=== PATIENT | female | born 1995 | race Caucasian/White ===

== ENCOUNTER 2020-04-21 12:46 | Emergency (ER) | payer OTHER, SELFPAY ==
--- NOTE | 2020-04-21 13:26 | ER ---
Nurse's Notes [facility] Name: Pura Jo Age: 25 yrs Sex: Female : 1995 Arrival Date: 04/21/2020 Time: 12:47 Bed 15 Private MD: Diagnosis: Otitis media, unspecified, left ear;Urinary tract infection, site not specified Presentation: 04/21 12:57 Chief complaint: Patient states: Left ear pain with numbness to that side of face for 3 ll1 days. Painful urination for 2 days. + urinary frequency with oliguria Low grade fever last night. + nausea. Coronavirus screen: Client denies travel out of the [place] in the last 14 days. At this time, the client does not indicate any symptoms associated with coronavirus-19. Ebola Screen: Patient denies travel to an Ebola-affected area in the 21 days before illness onset. Initial Sepsis Screen: Does the patient meet any 2 criteria? No. Patient's initial sepsis screen is negative. Risk Assessment: Do you want to hurt yourself or someone else? Patient reports no desire to harm self or others. Onset of symptoms was April 19, 2020. 12:57 Method Of Arrival: Ambulatory ll1 12:57 Acuity: UMESH 4 ll1 Triage Assessment: 13:00 General: Appears in no apparent distress. uncomfortable, Behavior is cooperative, bp appropriate for age, anxious. Pain: Complains of pain in left ear. EENT: Reports pain in left ear. Neuro: No deficits noted. Cardiovascular: No deficits noted. Respiratory: No deficits noted. GI: No signs and/or symptoms were reported involving the gastrointestinal system. : No signs and/or symptoms were reported regarding the genitourinary system. Derm: No deficits noted. Musculoskeletal: No deficits noted. Historical: - Allergies: 12:59 Midol; ll1 - PMHx: 12:59 scoliosis; ll1 - PSHx: 12:59 ; ll1 - Immunization history:: Flu vaccine is not up to date. - Social history:: Smoking status: Patient reports the use of cigarette tobacco products, smokes one-half pack cigarettes per day. Screenin:54 Abuse screen: Denies threats or abuse. Denies injuries from another. Nutritional ph screening: No deficits noted. Tuberculosis screening: No symptoms or risk factors identified. Fall Risk None identified. Assessment: 13:52 General: Appears in no apparent distress. comfortable, slender, well groomed, Behavior ph is calm, cooperative, appropriate for age, Denies fever, feeling ill. Pain: Complains of pain in left quaker. Neuro: Level of Consciousness is awake, alert, obeys commands, Oriented to person, place, time, situation, Reports headache. Cardiovascular: Capillary refill < 3 seconds in bilateral fingers Patient's skin is warm and dry. Respiratory: No deficits noted. : Reports burning with urination. EENT: Reports pain in left ear. Derm: Skin is intact, is healthy with good turgor, Skin is pink, warm \T\ dry. Musculoskeletal: Circulation, motion, and sensation intact. Range of motion: intact in all extremities. 13:54 Reassessment: D/C pending 15 min shot time. ph 14:10 Reassessment: PT D/C HOME AMBULATORY, DX WITH OTITIS MEDIA AND UTI. bp Vital Signs: 12:57 BP 107 / 79; Pulse 85; Resp 17; Temp 98.2; Pulse Ox 100% ; Weight 47.63 kg; Height 5 ll1 ft. 1 in. (154.94 cm); Pain 6/10; 14:10 BP 111 / 75; Pulse 79; Resp 17; Temp 98.5; Pulse Ox 99% ; bp 12:57 Body Mass Index 19.84 (47.63 kg, 154.94 cm) ll1 ED Course: 12:47 Patient arrived in ED. ds1 12:59 Triage completed. ll1 12:59 Arm band placed on Patient placed in an exam room, on a stretcher. ll1 13:01 Suman Laureano, DEWAYNE is Primary Nurse. bp 13:11 Jerry Booth NP is PHCP. pm1 13:11 Tay Villalta MD is Attending Physician. pm1 13:53 Patient has correct armband on for positive identification. Bed in low position. Call ph light in reach. Side rails up X 1. Pulse ox on. NIBP on. 14:10 No provider procedures requiring assistance completed. Patient did not have IV access bp during this emergency room visit. Administered Medications: 13:51 Drug: Rocephin (cefTRIAXone) 1 grams Route: IM; Site: right deltoid; ph 14:12 Follow up: Response: No adverse reaction bp 13:51 Drug: TORadol 60 mg Route: IM; Site: left deltoid; ph 14:12 Follow up: Response: No adverse reaction bp Outcome: 13:26 Discharge ordered by . pm1 14:11 Discharged to home ambulatory. bp 14:11 Condition: stable 14:11 Discharge instructions given to patient, Instructed on discharge instructions, follow up and referral plans. medication usage, Demonstrated understanding of instructions, follow-up care, medications, Prescriptions given X 1. 14:12 Patient left the ED. bp Addendum: 04/24/2020 09:20 Addendum: Culture Results: Positive urine culture. Phone call Attempt #1 Left voicemail a a5 at [facility] for pt to call back. Signatures: Lila Sharp ds1 Kayley Bueno, RN RN aa5 Kate Molina RN RN ph Jerry Booth, ALTON WOUND CARE SPECIALIST pm1 Suman Laureano RN RN bp Katerina Uriarte RN RN ll1
--- NOTE | 2020-04-21 13:27 | EDPHYS ---
Physician Documentation [facility] Name: Pura Jo Age: 25 yrs Sex: Female : 1995 Arrival Date: 04/21/2020 Time: 12:47 Bed 15 Private MD: ED Physician Tay Villalta HPI: 04/21 13:25 This 25 yrs old Female presents to ER via Ambulatory with complaints of Ear pm1 Pain, Pain With Urination. 13:25 The patient presents with pain. The complaints affect the left ear. pm1 13:25 Onset: The symptoms/episode began/occurred 3 day(s) ago. Modifying factors: The pm1 symptoms are alleviated by nothing, the symptoms are aggravated by nothing. Associated signs and symptoms: The patient has no apparent associated signs or symptoms, Pertinent positives: nausea, Pertinent negatives: cough, fever, abdominal pain, vomiting. The patient has experienced similar episodes in the past, a few times. Patient burning with urination for the past 2 days. Patient is currently at a rehabilitation facility. Historical: - Allergies: 12:59 Midol; ll1 - PMHx: 12:59 scoliosis; ll1 - PSHx: 12:59 ; ll1 - Immunization history:: Flu vaccine is not up to date. - Social history:: Smoking status: Patient reports the use of cigarette tobacco products, smokes one-half pack cigarettes per day. ROS: 13:25 Constitutional: Negative for fever, chills, and weight loss, Cardiovascular: Negative pm1 for chest pain, palpitations, and edema, Respiratory: Negative for shortness of breath, cough, wheezing, and pleuritic chest pain. 13:25 Back: Negative for injury and pain, MS/Extremity: Negative for injury and deformity. 13:25 Skin: Negative for injury, rash, and discoloration, Neuro: Negative for headache, weakness, numbness, tingling, and seizure. 13:25 ENT: Positive for ear pain, Negative for drainage from ear(s). 13:25 Abdomen/GI: Positive for nausea, Negative for abdominal pain, vomiting, diarrhea, constipation. 13:25 : Positive for urinary frequency, small amounts, burning with urination, Negative for pelvic pain. Exam: 15:20 Constitutional: This is a well developed, well nourished patient who is awake, alert, pm1 and in no acute distress. Head/Face: Normocephalic, atraumatic. 15:20 Skin: Warm, dry with normal turgor. Normal color with no rashes, no lesions, and no evidence of cellulitis. MS/ Extremity: Pulses equal, no cyanosis. Neurovascular intact. Full, normal range of motion. 15:20 ENT: External ear(s): are unremarkable, Ear canal(s): are normal, TM's: bulging, on the left, erythema, that is mild, on the left, Examination of the other ear shows no obvious abnormality. 15:20 Cardiovascular: Exam negative for acute changes, Rate: normal, Rhythm: regular, Pulses: 15:20 Respiratory: Exam negative for acute changes, the patient does not display signs of respiratory distress, Respirations: normal. 15:20 Abdomen/GI: Exam negative for acute changes, Inspection: abdomen appears normal, Palpation: abdomen is soft and non-tender, in all quadrants. 15:20 Back: pain, is absent. 15:20 Neuro: Exam negative for acute changes, Orientation: is normal, Mentation: is normal, Motor: is normal, moves all fours, Sensation: is normal, no obvious gross deficits. Vital Signs: 12:57 BP 107 / 79; Pulse 85; Resp 17; Temp 98.2; Pulse Ox 100% ; Weight 47.63 kg; Height 5 ll1 ft. 1 in. (154.94 cm); Pain 6/10; 14:10 BP 111 / 75; Pulse 79; Resp 17; Temp 98.5; Pulse Ox 99% ; bp 12:57 Body Mass Index 19.84 (47.63 kg, 154.94 cm) ll1 MDM: 13:25 Patient medically screened. pm1 13:25 Data reviewed: vital signs. Data interpreted: Pulse oximetry: on room air is 100 %. pm1 Interpretation: normal. Counseling: I had a detailed discussion with the patient and/or guardian regarding: the historical points, exam findings, and any diagnostic results supporting the discharge/admit diagnosis, the need for outpatient follow up, to return to the emergency department if symptoms worsen or persist or if there are any questions or concerns that arise at home. 04/21 13:24 Order name: Urine Microscopic Only; Complete Time: 15:16 pm1 04/21 13:40 Order name: Urine Dipstick--Ancillary (enter results); Complete Time: 15:16 04/21 13:40 Order name: Urine --Ancillary (enter results); Complete Time: 15:16 04/21 13:55 Order name: Urine Culture [facility] 04/21 13:24 Order name: Urine Dipstick-Ancillary (obtain specimen); Complete Time: 13:52 pm1 04/21 13:24 Order name: Urine Test (obtain specimen); Complete Time: 13:52 pm1 Administered Medications: 13:51 Drug: Rocephin (cefTRIAXone) 1 grams Route: IM; Site: right deltoid; ph 14:12 Follow up: Response: No adverse reaction bp 13:51 Drug: TORadol 60 mg Route: IM; Site: left deltoid; ph 14:12 Follow up: Response: No adverse reaction bp Disposition: 04/22 08:44 Co-signature as Attending Physician, Tay Villalta MD I agree with the assessment and kdr plan of care. Disposition: 04/21/20 13:26 Discharged to Home. Impression: Otitis media, unspecified, left ear, Urinary tract infection, site not specified. - Condition is Stable. - Discharge Instructions: Otitis Media, Adult, Urinary Tract Infection, Adult. - Prescriptions for cefdinir 300 mg Oral capsule - take 1 capsule by ORAL route every 12 hours for 7 days; 14 capsule. - Medication Reconciliation Form, Thank You Letter, Antibiotic Education, Prescription Opioid Use form. - Follow up: Emergency Department; When: As needed; Reason: Worsening of condition. Follow up: Private Physician; When: 2 - 3 days; Reason: Recheck today's complaints, Continuance of care, Re-evaluation by your physician. - Problem is new. - Symptoms have improved. Signatures: Dispatcher [employer] [facility] Tay Villalta MD MD [facility] Kate Molina RN RN ph Jerry Booth, ALTON PINION POLISHER pm1 Suman Laureano RN RN bp Lewis, Lynsay, RN RN ll1 Corrections: (The following items were deleted from the chart) 04/21 14:12 13:26 04/21/2020 13:26 Discharged to Home. Impression: Otitis media, unspecified, left bp ear; Urinary tract infection, site not specified. Condition is Stable. Forms are Medication Reconciliation Form, Thank You Letter, Antibiotic Education, Prescription Opioid Use. Follow up: Emergency Department; When: As needed; Reason: Worsening of condition. Follow up: Private Physician; When: 2 - 3 days; Reason: Recheck today's complaints, Continuance of care, Re-evaluation by your physician. Problem is new. Symptoms have improved. pm1
[2020-04-21] MEDS ORDERED: KETOROLAC 30 MG/ML INJ ONE (13:44)
[2020-04-21] MEDS ORDERED: CEFTRIAXONE 1000 MG/VIAL ONE (13:44)
[2020-04-21] MEDS ORDERED: LIDOCAINE 1% MPF 2 ML AMPULE ONE (13:45)
[2020-04-21 13:54] LABS: Urine Bacteria >50 /HPF (<20); Urine Culture Reflex Order REFLEXED
[2020-04-21 13:54] LABS: Urine Blood TRACE (NEG); Urine Glucose NEGATIVE (NEG); Urine Protein NEGATIVE (NEG); Urine Specific Gravity 1.025 (1.005-1.030); Urine pH 7.5 (5.0-7.0)
[2020-04-21 14:20] VITALS: BP 111/75; TEMP 98.5; O2SAT 99
== END 2020-04-21 14:12 | disposition home or self-care (01) ==
LOC: ER 12:46
DX: H66.92 Otitis media, unspecified, left ear (principal); N39.0 Urinary tract infection, site not specified; F17.210 Nicotine dependence, cigarettes, uncomplicated; Z88.6 Allergy status to analgesic agent
CPT/HCPCS: 81003; 81015; 81025; 87077; 87086; 87088; 87186; 96372; 99283; J2001

== ENCOUNTER 2020-07-16 20:56 | Emergency (ER) | payer SELFPAY ==
--- OUTSIDE RECORDS SUMMARY | 2020-07-16 20:59 | XMS REPORT | Continuity of Care Document ---
:1995 Author Organization [facility] t Address [address] [place] [address] Care Team Providers Name Role Phone Only, Test Attending Clinician Unavailable Problems This patient has no known problems. Allergies, Adverse Reactions, Alerts This patient has no known allergies or adverse reactions. Medications This patient has no known medications. Procedures This patient has no known procedures. Encounters Start End Encounter Admission Attending Care Care Encounter Source Date/Time Date/Time Type Type Clinicians Facility Department ID 2020-02-13 2020-02-13 Laboratory Only, Pcp [facility] [id number] 15:09:33 15:24:33 Only Test PRIMARY [id number] CARE [id number] JOSE ALBERTO [id number] Results This patient has no known results.
[2020-07-16] MEDS ORDERED: LIDOCAINE 1% MPF 5 ML VIAL ONE (22:06)
[2020-07-16] MEDS ORDERED: HYDROCODONE/APAP 10/325 TAB ONE (22:08)
[2020-07-16] MEDS ORDERED: TETANUS & DIPHTHERIA TOX,ADULT 0.5 ML VIAL ONE (22:08)
[2020-07-16] MEDS ORDERED: MORPHINE 4 MG/ML SYR ONE (22:09)
[2020-07-16] MEDS ORDERED: FENTANYL CITR 100 MCG/2 ML ONE (22:41)
--- NOTE | 2020-07-16 22:41 | ER ---
Nurse's Notes 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 Denies fever. ca1 Coronavirus screen: Client denies travel out of the [place] in the last 14 days. At this time, the client does not indicate any symptoms associated with coronavirus-19. Ebola Screen: Patient negative for fever greater than or equal to 101.5 degrees Fahrenheit, and additional compatible Ebola Virus Disease symptoms Patient denies exposure to infectious person. Patient denies travel to an Ebola-affected area in the 21 days before illness onset. No symptoms or risks identified at this time. Initial Sepsis Screen: Does the patient meet any 2 criteria? No. Patient's initial sepsis screen is negative. Does the patient have a suspected source of infection? No. Patient's initial sepsis screen is negative. Risk Assessment: Do you want to hurt yourself or someone else? Patient reports no desire to harm self or others. Onset of symptoms was July 16, 2020. 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 - Social history:: Smoking status: Patient reports the use of cigarette tobacco products, smokes one-half pack cigarettes per day. Screenin:03 Abuse screen: Denies threats or abuse. Denies injuries from another. Nutritional rv screening: No deficits noted. Tuberculosis screening: No symptoms or risk factors identified. Fall Risk None identified. Assessment: 22:02 General: Appears comfortable, Behavior is calm, cooperative. Pain: Complains of pain in rv LEFT UNDER ARM. Neuro: Level of Consciousness is awake, alert, obeys commands, Oriented to person, place, time, situation. Cardiovascular: Patient's skin is warm and dry. Respiratory: Airway is patent. Derm: Abscess located on LEFT AXILLA is golf ball sized. Vital Signs: 21:24 BP 121 / 71; Pulse 89; Resp 16 S; Temp 98(TE); Pulse Ox 95% on R/A; Weight 47.63 kg ca1 (R); Height 5 ft. 1 in. (154.94 cm) (R); Pain 8/10; 22:30 BP 124 / 74; Pulse 92; Resp 18; Pulse Ox 96% on R/A; rv 23:15 BP 121 / 70; Pulse 86; Resp 16; Temp 98; Pulse Ox 96% on R/A; rv 21:24 Body Mass Index 19.84 (47.63 kg, 154.94 cm) ca1 ED Course: 21:06 Patient arrived in ED. am2 21:25 Triage completed. ca1 21:25 Arm band placed on right wrist. ca1 21:37 Jerry Booth NP is PHCP. pm1 21:38 Chaz Johnson MD is Attending Physician. pm1 21:50 Darnell Ghotra RN is Primary Nurse. rv 22:03 Patient has correct armband on for positive identification. Placed in gown. Bed in low rv position. Call light in reach. Side rails up X 1. Pulse ox on. NIBP on. 22:14 Assist provider with I \T\ D: of an abscess on left axilla Set up I\T\D tray. Performed by jourdan Booth NP Culture sent to lab. Wound packed. iodoform gauze, Dressing with 4X4s, Patient tolerated poorly. 22:30 Inserted saline lock: 22 gauge in right forearm, using aseptic technique. rv 23:23 IV discontinued, intact, bleeding controlled, No redness/swelling at site. Pressure rv dressing applied. Administered Medications: 22:00 Drug: Tetanus-Diphtheria Toxoid Adult 0.5 ml {Dot Compliance Coordinator: [employer]. Exp: rv 09/15/2022. Lot #: [id number]. } Route: IM; Site: left deltoid; 23:25 Follow up: Response: No adverse reaction rv 22:00 CANCELLED (Duplicate Order): morphine 4 mg IM once; RASS on ADMIN: Combtv4, Very rv Agttd3, Agttd2, Rstlss1, AlertClm0, Drwsy-1, Lt Sdtn-2, Mod Sdtn-3, Dp Sdtn-4, UnArsble-5 22:01 Drug: Lidocaine (1 %) 5 ml {Note: INFILTRATION BY ALTON BOOTH.} Volume: 5 ml; Route: rv Infiltration; 22:01 Drug: morphine 4 mg {Note: RASS 0.} Route: IM; Site: left deltoid; rv 23:24 Follow up: Response: No adverse reaction; Pain is unchanged, physician notified rv 22:32 CANCELLED (Duplicate Order): fentaNYL (PF) 25 mcg IM once; RASS on ADMIN: Combtv4, Very rv Agttd3, Agttd2, Rstlss1, AlertClm0, Drwsy-1, Lt Sdtn-2, Mod Sdtn-3, Dp Sdtn-4, UnArsble-5 22:33 Drug: fentaNYL (PF) 25 mcg {Note: rass 2.} Route: IVP; Site: right forearm; rv 23:24 Follow up: Response: No adverse reaction; Pain is unchanged, physician notified rv 22:48 Drug: Bactrim (160 mg-800 mg (DS) 1 tablet Route: PO; rv 22:55 Drug: fentaNYL (PF) 25 mcg {Note: RASS 2.} Route: IVP; Site: right forearm; rv 23:24 Follow up: Response: No adverse reaction; Pain is decreased; RASS: Alert and Calm (0) rv Outcome: 22:40 Discharge ordered by MD. pm1 23:22 Discharged to home ambulatory, with family. rv 23:22 Condition: good 23:22 Discharge instructions given to patient, Instructed on discharge instructions, follow up and referral plans. medication usage, wound care, Demonstrated understanding of instructions, follow-up care, medications, wound care, Prescriptions given X 2. 23:23 Patient left the ED. rv Addendum: 07/20/2020 09:18 Addendum: Culture Results: Positive wound culture. No further action required. Bacteria a a5 sensitive to prescribed antibiotic. Signatures: Kayley Bueno RN RN aa5 Jerry Booth NP HUMAN RESOURCES SAFETY MANAGER pm1 Yaima Choudhary am2 Darnell Ghotra RN RN rv Constance Kyle RN RN ca1
--- NOTE | 2020-07-16 22:41 | EDPHYS ---
Physician Documentation [facility] Name: Pura Pulido Age: 25 yrs Sex: Female : 1995 Arrival Date: 07/16/2020 Time: 21:06 Bed 17 Private MD: ED Physician Chaz Johnson HPI: 07/16 21:48 This 25 yrs old Female presents to ER via Ambulatory with complaints of Boil pm1 - left armpit. 21:48 Onset: The symptoms/episode began/occurred 3 day(s) ago. Associated signs and symptoms: pm1 Pertinent negatives: fever. Modifying factors: the patient symptoms are aggravated by touching, moving arm. The patient has not experienced similar symptoms in the past. The patient has not recently seen a physician. Onset of abscess to left axilla post shaving armpit hairs. Tried over the counter boil medications without improvement. 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 - Social history:: Smoking status: Patient reports the use of cigarette tobacco products, smokes one-half pack cigarettes per day. ROS: 21:48 Constitutional: Negative for fever, chills, and weight loss, Cardiovascular: Negative pm1 for chest pain, palpitations, and edema, Respiratory: Negative for shortness of breath, cough, wheezing, and pleuritic chest pain, MS/Extremity: Negative for injury and deformity. 21:48 Skin: Positive for abscess, of the left axilla. Exam: 21:48 Constitutional: This is a well developed, well nourished patient who is awake, alert, pm1 and in no acute distress. 21:48 Head/Face: Normocephalic, atraumatic. 21:48 Cardiovascular: Exam negative for acute changes, Rate: normal, Rhythm: regular, Pulses: no pulse deficits are appreciated. 21:48 Respiratory: Exam negative for acute changes, respiratory distress, shortness of breath. 21:48 Skin: Appearance: normal except for affected area, abscess, of the left axilla, with fluctuance, 2 cm diameter raised circular abscess without drainage or surrounding cellulitis . Vital Signs: 21:24 BP 121 / 71; Pulse 89; Resp 16 S; Temp 98(TE); Pulse Ox 95% on R/A; Weight 47.63 kg ca1 (R); Height 5 ft. 1 in. (154.94 cm) (R); Pain 8/10; 22:30 BP 124 / 74; Pulse 92; Resp 18; Pulse Ox 96% on R/A; rv 23:15 BP 121 / 70; Pulse 86; Resp 16; Temp 98; Pulse Ox 96% on R/A; rv 21:24 Body Mass Index 19.84 (47.63 kg, 154.94 cm) ca1 MDM: 21:45 Patient medically screened. pm1 22:39 Data reviewed: vital signs. Data interpreted: Pulse oximetry: on room air is 95 %. pm1 Interpretation: normal. Counseling: I had a detailed discussion with the patient and/or guardian regarding: the historical points, exam findings, and any diagnostic results supporting the discharge/admit diagnosis, the need for outpatient follow up, for definitive care, a general surgeon, to return to the emergency department if symptoms worsen or persist or if there are any questions or concerns that arise at home. 07/16 22:13 Order name: Wound Culture EDMS 07/16 21:48 Order name: Incision \T\ Drainage Setup; Complete Time: 22:02 pm1 07/16 22:33 Order name: IV; Complete Time: 22:33 rv Administered Medications: 22:00 Drug: Tetanus-Diphtheria Toxoid Adult 0.5 ml {Numerologist: [employer]. Exp: rv 09/15/2022. Lot #: [id number]. } Route: IM; Site: left deltoid; 23:25 Follow up: Response: No adverse reaction rv 22:00 CANCELLED (Duplicate Order): morphine 4 mg IM once; RASS on ADMIN: Combtv4, Very rv Agttd3, Agttd2, Rstlss1, AlertClm0, Drwsy-1, Lt Sdtn-2, Mod Sdtn-3, Dp Sdtn-4, UnArsble-5 22:01 Drug: Lidocaine (1 %) 5 ml {Note: INFILTRATION BY CARLI, MARINA SALES AND SERVICE SUPERVISOR.} Volume: 5 ml; Route: rv Infiltration; 22:01 Drug: morphine 4 mg {Note: RASS 0.} Route: IM; Site: left deltoid; rv 23:24 Follow up: Response: No adverse reaction; Pain is unchanged, physician notified rv 22:32 CANCELLED (Duplicate Order): fentaNYL (PF) 25 mcg IM once; RASS on ADMIN: Combtv4, Very rv Agttd3, Agttd2, Rstlss1, AlertClm0, Drwsy-1, Lt Sdtn-2, Mod Sdtn-3, Dp Sdtn-4, UnArsble-5 22:33 Drug: fentaNYL (PF) 25 mcg {Note: rass 2.} Route: IVP; Site: right forearm; rv 23:24 Follow up: Response: No adverse reaction; Pain is unchanged, physician notified rv 22:48 Drug: Bactrim (160 mg-800 mg (DS) 1 tablet Route: PO; rv 22:55 Drug: fentaNYL (PF) 25 mcg {Note: RASS 2.} Route: IVP; Site: right forearm; rv 23:24 Follow up: Response: No adverse reaction; Pain is decreased; RASS: Alert and Calm (0) rv Disposition: 07/17 04:01 Co-signature as Attending Physician, Chaz Johnson MD. ma2 Disposition: 07/16/20 22:40 Discharged to Home. Impression: Cutaneous abscess of left axilla. - Condition is Stable. - Discharge Instructions: Skin Abscess, Incision and Drainage. - Prescriptions for Tylenol- Codeine #3 300-30 mg Oral Tablet - take 2 tablets by ORAL route every 6 hours As needed; 20 tablet. Bactrim DS 800- 160 mg Oral Tablet - take 1 tablet by ORAL route every 12 hours for 10 days; 20 tablet. - Medication Reconciliation Form, Thank You Letter, Antibiotic Education, Prescription Opioid Use form. - Follow up: Emergency Department; When: As needed; Reason: Worsening of condition. Follow up: Private Physician; When: 2 - 3 days; Reason: Recheck today's complaints, Continuance of care, Re-evaluation by your physician. - Problem is new. - Symptoms have improved. Signatures: Dispatcher [employer] EDMS Jerry Booth, MARINA SALES AND SERVICE SUPERVISOR MARINA SALES AND SERVICE SUPERVISOR pm1 Chaz Johnson MD MD ma2 Darnell Ghotra RN RN rv Constance Kyle RN RN ca1 Corrections: (The following items were deleted from the chart) 07/16 22:00 22:00 morphine 4 mg IM once; RASS on ADMIN: Combtv4, Very Agttd3, Agttd2, Rstlss1, rv AlertClm0, Drwsy-1, Lt Sdtn-2, Mod Sdtn-3, Dp Sdtn-4, UnArsble-5 ordered. rv 22:25 22:13 Wound Culture ordered. EDMS EDMS 22:32 22:22 fentaNYL (PF) 25 mcg IM once; RASS on ADMIN: Combtv4, Very Agttd3, Agttd2, rv Rstlss1, AlertClm0, Drwsy-1, Lt Sdtn-2, Mod Sdtn-3, Dp Sdtn-4, UnArsble-5 ordered. pm1 23:23 22:40 07/16/2020 22:40 Discharged to Home. Impression: Cutaneous abscess of left rv axilla. Condition is Stable. Forms are Medication Reconciliation Form, Thank You Letter, Antibiotic Education, Prescription Opioid Use. Follow up: Emergency Department; When: As needed; Reason: Worsening of condition. Follow up: Private Physician; When: 2 - 3 days; Reason: Recheck today's complaints, Continuance of care, Re-evaluation by your physician. Problem is new. Symptoms have improved. pm1
[2020-07-16] MEDS ORDERED: SMZ./TMP. 800/160 MG TABLET ONE (23:01)
[2020-07-18 03:25] VITALS: TEMP 98
[2020-07-18 03:26] VITALS: O2SAT 96
[2020-07-18 03:27] VITALS: BP 121/70
== END 2020-07-16 23:23 | disposition home or self-care (01) ==
LOC: ER 20:56
DX: L02.412 Cutaneous abscess of left axilla (principal); F17.210 Nicotine dependence, cigarettes, uncomplicated; Z23 Encounter for immunization; Z88.6 Allergy status to analgesic agent
CPT/HCPCS: 87070; 87077; 87186; 87205; 90471; 90714; 96372; 96374; 99284; J3010

== ENCOUNTER 2020-07-18 | Emergency (ER) | payer SELFPAY ==
--- OUTSIDE RECORDS SUMMARY | 2020-07-18 18:37 | XMS REPORT | Continuity of Care Document ---
:1995 Author Organization [facility] t Address [address] [place] [address] Care Team Providers Name Role Phone Only, [...] Department ID 2020-02-13 2020-02-13 Laboratory Only, Pcp [facility] [id number] 15:09:33 15:24:33 Only Test PRIMARY [id number] CARE [id number] JOSE ALBERTO [id number] Results This patient has no known results.
--- NOTE | 2020-07-18 20:08 | ER ---
Nurse's Notes [facility] Name: Pura Pulido Age: 25 yrs Sex: Female : 1995 Arrival Date: 07/18/2020 Time: 18:36 Bed 15 Private MD: Diagnosis: Presentation: 07/18 19:17 Chief complaint: Patient states: Need packing out of L axilla I\T\D site from 2 days ago. sv No fever, site is getting better. Coronavirus screen: Client denies travel out of the [place] in the last 14 days. At this time, the client does not indicate any symptoms associated with coronavirus-19. Ebola Screen: Patient denies travel to an Ebola-affected area in the 21 days before illness onset. Initial Sepsis Screen: Does the patient meet any 2 criteria? No. Patient's initial sepsis screen is negative. Does the patient have a suspected source of infection? Yes: Skin breakdown/wound. Risk Assessment: Do you want to hurt yourself or someone else? Patient reports no desire to harm self or others. Onset of symptoms is unknown. 19:17 Method Of Arrival: Ambulatory sv 19:17 Acuity: UMESH 5 sv Historical: - Allergies: 19:19 No Known Allergies; sv - PMHx: 19:19 scoliosis; sv - PSHx: 19:19 ; sv - Immunization history:: Flu vaccine is up to date. - Social history:: Smoking status: Patient reports the use of cigarette tobacco products, smokes one-half pack cigarettes per day, Patient/guardian denies using alcohol, street drugs, The patient lives with family. - Family history:: not pertinent. Vital Signs: 19:17 BP 119 / 74; Pulse 89; Resp 16; Temp 97.5; Pulse Ox 100% ; Weight 47.63 kg; Height 5 sv ft. 1 in. (154.94 cm); Pain 5/10; 19:17 Body Mass Index 19.84 (47.63 kg, 154.94 cm) sv ED Course: 18:36 Patient arrived in ED. rg4 19:18 Triage completed. sv 19:19 Arm band placed on Patient placed in an exam room, on a stretcher. sv 19:20 Chaz Johnson MD is Attending Physician. ma2 19:40 Alo Harmon, RN is Primary Nurse. jb4 Administered Medications: 20:06 Not Given (Patient Eloped): Davidson 10 mg-325 mg 1 tabs PO once; RASS on ADMIN: Combtv4, sg Very Agttd3, Agttd2, Rstlss1, AlertClm0, Drwsy-1, Lt Sdtn-2, Mod Sdtn-3, Dp Sdtn-4, UnArsble-5 Outcome: 20:07 Patient left the ED. sg Signatures: Lola Moraes, RN Juliocesar Dowell RN RN sg Garcia, Rubi rg4 Alo Hramon RN RN jb4 Chaz Johnson MD MD ma2
--- NOTE | 2020-07-18 20:08 | EDPHYS ---
Physician Documentation [facility] Name: Pura Pulido Age: 25 yrs Sex: Female : 1995 Arrival Date: 07/18/2020 Time: 18:36 Bed 15 Private MD: ED Physician Chaz Johnson HPI: 07/18 20:04 This 25 yrs old Female presents to ER via Ambulatory with complaints of Cyst ma2 - Re-Check. 20:04 Onset: The symptoms/episode began/occurred suddenly, 1 week(s) ago. Associated signs ma2 and symptoms: Pertinent negatives: diaphoresis, neck pain. Severity of symptoms: At their worst the symptoms were very mild, in the emergency department the symptoms are unchanged. The patient has experienced similar episodes in the past. The patient has been recently seen by a physician:. here for packing removal of left axilla packing, day2 s/p i and d,, her symptoms improved over the last 2 days . Historical: - Allergies: 19:19 No Known Allergies; sv - PMHx: 19:19 scoliosis; sv - PSHx: 19:19 ; sv - Immunization history:: Flu vaccine is up to date. - Social history:: Smoking status: Patient reports the use of cigarette tobacco products, smokes one-half pack cigarettes per day, Patient/guardian denies using alcohol, street drugs, The patient lives with family. - Family history:: not pertinent. ROS: 20:04 Constitutional: Negative for fever, chills, and weight loss. ma2 20:04 All other systems are negative. Exam: 20:04 Constitutional: This is a well developed, well nourished patient who is awake, alert, ma2 and in no acute distress. Head/Face: Normocephalic, atraumatic. Eyes: Pupils equal round and reactive to light, extra-ocular motions intact. Lids and lashes normal. Conjunctiva and sclera are non-icteric and not injected. Cornea within normal limits. Periorbital areas with no swelling, redness, or edema. ENT: Nares patent. No nasal discharge, no septal abnormalities noted. Tympanic membranes are normal and external auditory canals are clear. Oropharynx with no redness, swelling, or masses, exudates, or evidence of obstruction, uvula midline. Mucous membranes moist. Neck: Trachea midline, no thyromegaly or masses palpated, and no cervical lymphadenopathy. Supple, full range of motion without nuchal rigidity, or vertebral point tenderness. No Meningismus. Chest/axilla: left axilla abscess s/p i and d, packing is not present. patient states she pulled a pack and she thought that there is something else still inside.. no packing inside, the outside dressing that was placed by the patietn 3 hrs ago has some pus that is 3 ml purulent. the i and d area is mildly tender and red/indurated, drasticly improved compaired to picture that she she me on her phone.. no fluctuent pus pocket appreciated.. yet the area is not completely dry.. Normal chest wall appearance and motion. Nontender with no deformity. No lesions are appreciated. Cardiovascular: Regular rate and rhythm with a normal S1 and S2. No gallops, murmurs, or rubs. Normal PMI, no JVD. No pulse deficits. Respiratory: Lungs have equal breath sounds bilaterally, clear to auscultation and percussion. No rales, rhonchi or wheezes noted. No increased work of breathing, no retractions or nasal flaring. Abdomen/GI: Soft, non-tender, with normal bowel sounds. No distension or tympany. No guarding or rebound. No evidence of tenderness throughout. Skin: Warm, dry with normal turgor. Normal color with no rashes, no lesions, and no evidence of cellulitis. MS/ Extremity: Pulses equal, no cyanosis. Neurovascular intact. Full, normal range of motion. Neuro: Awake and alert, GCS 15, oriented to person, place, time, and situation. Cranial nerves II-XII grossly intact. Motor strength 5/5 in all extremities. Sensory grossly intact. Cerebellar exam normal. Normal gait. Vital Signs: 19:17 BP 119 / 74; Pulse 89; Resp 16; Temp 97.5; Pulse Ox 100% ; Weight 47.63 kg; Height 5 sv ft. 1 in. (154.94 cm); Pain 5/10; 19:17 Body Mass Index 19.84 (47.63 kg, 154.94 cm) sv MDM: 19:20 Patient medically screened. ma2 20:04 Differential diagnosis: cellulitis. abscess s/p i and d. surgical laceration, abscess. ma2 Data reviewed: vital signs, nurses notes. Counseling: I had a detailed discussion with the patient and/or guardian regarding: the historical points, exam findings, and any diagnostic results supporting the discharge/admit diagnosis, the presence of at least one elevated blood pressure reading (>120/80) during this emergency department visit, the need for outpatient follow up. Response to treatment: the patient's symptoms have markedly improved after treatment. ED course: patient is on day 1 bactrim, i advised her to complete the course and return to er if symptoms worsen . Administered Medications: 20:06 Not Given (Patient Eloped): [place] 10 mg-325 mg 1 tabs PO once; RASS on ADMIN: Combtv4, sg Very Agttd3, Agttd2, Rstlss1, AlertClm0, Drwsy-1, Lt Sdtn-2, Mod Sdtn-3, Dp Sdtn-4, UnArsble-5 Disposition: 07/18/20 20:07 Patient left the facility after being seen by provider. - Patient left due to (see nurse's notes). - Condition is Stable. Signatures: Lola Moraes, RN RN Juliocesar Reddy RN RN sg Alzahri, Mohammad, MD MD ma2
== END 2020-07-18 20:07 | disposition left against medical advice (07) ==
DX: Z48.01 Encounter for change or removal of surgical wound dressing (principal)
CPT/HCPCS: 99281

== ENCOUNTER 2020-12-25 21:35 | Emergency (ER) | payer SELFPAY ==
--- OUTSIDE RECORDS SUMMARY | 2020-12-25 21:38 | XMS REPORT | Continuity of Care Document ---
:1995 Author Organization [facility] t Address [address] [place] [address] Care Team Providers Name Role Phone Doctor Unassigned, Name Attending Clinician Unavailable Only, Test Attending Clinician Unavailable Problems This patient has no known problems. Allergies, Adverse Reactions, Alerts This patient has no known allergies or adverse reactions. Medications This patient has no known medications. Procedures This patient has no known procedures. Encounters Start End Encounter Admission Attending Care Care Encounter Source Date/Time Date/Time Type Type Clinicians Facility Department ID 2020-07-31 2020-07-31 Orders Doctor STEPHANIE [id number] 00:00:00 00:00:00 Only Unassigned, S[place]AN[place] [id number] [place] [facility] [id number] 2020-02-13 2020-02-13 Laboratory Only, Pcp [facility] [id number] 15:09:33 15:24:33 Only Test PRIMARY [id number] CARE [id number] JOSE ALBERTO [id number] 366 Results This patient has no known results.
--- NOTE | 2020-12-25 23:07 | ER ---
Nurse's Notes [facility] Name: Pura Pulido Age: 25 yrs Sex: Female : 1995 Arrival Date: 12/25/2020 Time: 21:43 Bed 12 Private MD: Diagnosis: Rash and other nonspecific skin eruption;Cellulitis of face Presentation: 12/25 22:52 Chief complaint: Patient states: she has bugs on her face and it has been going on for bb weeks. Coronavirus screen: At this time, the client does not indicate any symptoms associated with coronavirus-19. Ebola Screen: No symptoms or risks identified at this time. Initial Sepsis Screen: Does the patient meet any 2 criteria? No. Patient's initial sepsis screen is negative. Does the patient have a suspected source of infection? No. Patient's initial sepsis screen is negative. Risk Assessment: Do you want to hurt yourself or someone else? Patient reports no desire to harm self or others. Onset of symptoms is unknown. 22:52 Method Of Arrival: Ambulatory bb 22:52 Acuity: UMESH 5 bb Triage Assessment: 22:55 General: Appears uncomfortable, ill, unkempt, Behavior is agitated, anxious. Pain: bb Denies pain. Neuro: Level of Consciousness is obeys commands, listless, Oriented to person, place, situation. Cardiovascular: Capillary refill < 3 seconds Patient's skin is warm and dry. Respiratory: Respiratory effort is even, unlabored, Respiratory pattern is regular. GI: No signs and/or symptoms were reported involving the gastrointestinal system. Derm: multiple sores on face and arms. 22:55 Musculoskeletal: Circulation, motion, and sensation intact. 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 - Social history:: Smoking status: Patient reports the use of cigarette tobacco products, smokes one pack cigarettes per day. Patient/guardian denies using alcohol, street drugs. - Family history:: not pertinent. - Hospitalizations: : No recent hospitalization is reported. Screenin:18 Abuse screen: Denies threats or abuse. Nutritional screening: No deficits noted. bb Tuberculosis screening: No symptoms or risk factors identified. Fall Risk None identified. Assessment: 23:16 Reassessment: No changes from previously documented assessment. see triage assessment. bb Reassessment: pt crying insisting that there are bugs on her face reassured pt that there were no bugs. Pt crying yelled "you see track [facility]well and think everyone is a junkie". Pt given discharge papers and instructions left without signing papers. Vital Signs: 22:52 BP 122 / 73; Pulse 83; Resp 18 S; Temp 98.7(O); Pulse Ox 99% on R/A; Weight 54.43 kg bb (R); Height 5 ft. 1 in. (154.94 cm) (R); 22:52 Body Mass Index 22.67 (54.43 kg, 154.94 cm) bb ED Course: 21:43 Patient arrived in ED. cf2 22:55 Triage completed. bb 22:55 Arm band placed on Patient placed in an exam room. bb 22:58 Zak Case MD is Attending Physician. rn 23:18 Patient has correct armband on for positive identification. bb 23:18 No provider procedures requiring assistance completed. Patient did not have IV access bb during this emergency room visit. Administered Medications: 23:15 Drug: Bactrim (trimethoprim-sulfamethoxazole) (160 mg-800 mg (DS) 1 tablet Route: PO; bb 23:15 Follow up: Response: Medication administered at discharge. bb Outcome: 23:06 Discharge ordered by . rn 23:18 Discharged to home ambulatory. bb 23:18 Condition: stable 23:18 Discharge instructions given to patient, Instructed on discharge instructions, follow up and referral plans. medication usage, Demonstrated understanding of instructions, follow-up care, medications, Prescriptions given X 1. 23:19 Patient left the ED. bb Signatures: Vida Son RN RN bb Nieto, Roman, MD MD rn Frazier, Celesta cf2
--- NOTE | 2020-12-25 23:07 | EDPHYS ---
Physician Documentation [facility] Name: Pura Pulido Age: 25 yrs Sex: Female : 1995 Arrival Date: 12/25/2020 Time: 21:43 Bed 12 Private MD: ED Physician Zak Case HPI: 12/25 23:02 This 25 yrs old Female presents to ER via Ambulatory with complaints of BUGS rn IN FACE AND ARMS. 23:02 The patient's rash thought to be caused by an unknown cause. The rash is located on the rn face, right arm and left arm. Onset: The symptoms/episode began/occurred at an unknown time. Severity of symptoms: At their worst the symptoms were moderate in the emergency department the symptoms are unchanged. The patient has not experienced similar symptoms in the past. The patient has not recently seen a physician. Reports bugs in face and arms, says she sees worms, just got out of residential, not sure when it started, no fever, no abscess, no drainage. . 23:02 Denies drug use.. 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 - Social history:: Smoking status: Patient reports the use of cigarette tobacco products, smokes one pack cigarettes per day. Patient/guardian denies using alcohol, street drugs. - Family history:: not pertinent. - Hospitalizations: : No recent hospitalization is reported. ROS: 23:02 Constitutional: Negative for fever, chills, and weight loss, Eyes: Negative for injury, rn pain, redness, and discharge, Cardiovascular: Negative for chest pain, palpitations, and edema, Respiratory: Negative for shortness of breath, cough, wheezing, and pleuritic chest pain, Abdomen/GI: Negative for abdominal pain, nausea, vomiting, diarrhea, and constipation, Back: Negative for injury and pain, MS/Extremity: Negative for injury and deformity, Skin: + rash to face and arms. Neuro: Negative for headache, weakness, numbness, tingling, and seizure. Exam: 23:02 Constitutional: This is a well developed, well nourished patient who is awake, alert, rn and in no acute distress. frequent movements and twitches of body, ambulatory to room. Head/Face: Normocephalic, atraumatic. Multiple open sores to face with excoriations, no bugs or worms noted. Eyes: Pupils equal round and reactive to light, extra-ocular motions intact. Skin: Warm, dry, + multiple open sores to face and arms/neck, no abscess noted, no drainage. Vital Signs: 22:52 BP 122 / 73; Pulse 83; Resp 18 S; Temp 98.7(O); Pulse Ox 99% on R/A; Weight 54.43 kg bb (R); Height 5 ft. 1 in. (154.94 cm) (R); 22:52 Body Mass Index 22.67 (54.43 kg, 154.94 cm) bb MDM: 22:58 Patient medically screened. rn 23:02 Differential diagnosis: drug related rash, excoriations, cellulitis, dermatitis. Data rn reviewed: vital signs, nurses notes, and as a result, I will discharge patient. Counseling: I had a detailed discussion with the patient and/or guardian regarding: the historical points, exam findings, and any diagnostic results supporting the discharge/admit diagnosis, the need for outpatient follow up, to return to the emergency department if symptoms worsen or persist or if there are any questions or concerns that arise at home. Special discussion: I discussed with the patient/guardian in detail that at this point there is no indication for admission to the hospital. It is understood, however, that if the symptoms persist or worsen the patient needs to return immediately for re-evaluation. 23:02 Special discussion: Based on the history and exam findings, there is no indication for rn further emergent testing or inpatient evaluation. I discussed with the patient/guardian the need to see the administrative office specialist for further evaluation of the symptoms. Administered Medications: 23:15 Drug: Bactrim (trimethoprim-sulfamethoxazole) (160 mg-800 mg (DS) 1 tablet Route: PO; bb 23:15 Follow up: Response: Medication administered at discharge. bb Disposition: 12/25/20 23:06 Discharged to Home. Impression: Rash and other nonspecific skin eruption, Cellulitis of face. - Condition is Stable. - Discharge Instructions: Cellulitis, Adult, Rash. - Prescriptions for Bactrim DS 800- 160 mg Oral Tablet - take 1 tablet by ORAL route every 12 hours for 10 days; 20 tablet. - Medication Reconciliation Form, Thank You Letter, Antibiotic Education, Prescription Opioid Use form. - Follow up: Private Physician; When: As needed; Reason: Recheck today's complaints, Re-evaluation by your physician. - Problem is new. - Symptoms are unchanged. Signatures: Vida Son RN RN bb Zak Case MD MD music journalist: (The following items were deleted from the chart) 23:19 23:06 12/25/2020 23:06 Discharged to Home. Impression: Rash and other nonspecific skin bb eruption; Cellulitis of face. Condition is Stable. Forms are Medication Reconciliation Form, Thank You Letter, Antibiotic Education, Prescription Opioid Use. Follow up: Private Physician; When: As needed; Reason: Recheck today's complaints, Re-evaluation by your physician. Problem is new. Symptoms are unchanged. rn
[2020-12-25] MEDS ORDERED: SMZ./TMP. 800/160 MG TABLET ONE (23:33)
[2020-12-25 23:45] VITALS: BP 122/73; TEMP 98.7; O2SAT 99
== END 2020-12-25 23:19 | disposition home or self-care (01) ==
LOC: ER 21:35
DX: L03.211 Cellulitis of face (principal); R21 Rash and other nonspecific skin eruption; F17.210 Nicotine dependence, cigarettes, uncomplicated; M41.9 Scoliosis, unspecified
CPT/HCPCS: 99283

== ENCOUNTER 2022-06-08 21:15 | Emergency (ER) | payer SELFPAY ==
--- OUTSIDE RECORDS SUMMARY | 2022-06-08 21:18 | XMS REPORT | Continuity of Care Document ---
:1995 Author Organization [facility] t Address [address] [place] [address] Care Team Providers Name Role Phone Doctor Unassigned, [place] Attending Clinician Unavailable RAMÓN MCALLISTER Attending Clinician Unavailable Only, Pcp Test Attending Clinician Unavailable John MENESES, Alfie Wood Attending Clinician Payers Payer Name Policy Type Policy Number Effective Date Expiration Date 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 affecting affecting 0-09 [place] Medica l trimester trimester Bran ch Disease Active Uni vers with with 4-05 ity [place] Med[place] viability, viability, Br anch fetus 1 fetus 1 Tobacco Tobacco Disease Active Univers use use 4-05 ity of disorder disorder 00:00: [place] 00 Medical Branch Allergies, Adverse Reactions, Alerts Allergy Allergy Status Severity Reaction(s) Onset Inactive Treating Comm ents Source Name Type Date Date Clinician Butorpha Propensi Active Itching Unive rs nol ty to 4-05 ity of Tartrate adverse 00:00: [place] reaction 00 [facility] Branch BUTORPHA DRUG Active Hallucinates Un forest NOL INGREDI 4-05 ity of TARTRATE 00:00: [place] [address] [facility] Acetamin Propensi Active Hives Univer s ophen-Pa ty to 4-05 ity of mabrom adverse 00:00: [place] reaction 00 [facility] ACETAMIN DRUG Active Hives Univers OPHEN-PA 4-05 ity of MABROM 00:00: [place] [address] [facility] Social History Social Habit Start Date Stop Date Quantity Comments Source Sex Assigned At [facility] y of [facility] Tobacco use and 2019-06-21 2019-06-21 Never used Universit y of exposure 00:00:00 00:00:00 [facility] Alcohol intake 2019-06-21 2019-06-21 Current [facility] 00:00:00 00:00:00 non-drinker of [facility] alcohol [place] (finding) Tobacco Comment 2015-11-29 2015-11-29 5 cigs a day Univers ity of 00:00:00 00:00:00 [facility] Smoking Status Start Date Stop Date Source Current every day smoker 2019-06-21 00:00:00 Uni versity of [facility] Medications Ordered Filled Start Stop Current Ordering Indication Dosage Frequency Signature Comments Components Source Medication Medication Date Date Medication? Clinician (SIG) Name Name padmini 2018-07 Yes [id number] 250mg Take 1 Univers n 250 mg 1-26 tablet by ity of tablet 00:00: mouth [place] SEE-INSTR Medical CTIONS. Branch Take 500 mg day 1, then 250 mg days 2 to 5. padmini 2018-07 Yes [id number] 250mg Take 1 Univers n 250 mg 1-26 tablet by ity of tablet 00:00: mouth [place] SEE-INSTRU Medical CTIONS. Branch Take 500 mg day 1, then 250 mg days 2 to 5. padmini 2018-07 Yes [id number] 250mg Take 1 Univers n 250 mg 1-26 tablet by ity of tablet 00:00: mouth [place] SEEINSTRU Medical CTIONS. Branch Take 500 mg day 1, then 250 mg days 2 to 5. padmini 2018-07 Yes [id number] 250mg Take 1 Univers n 250 mg 1-26 tablet by ity of tablet 00:00: mouth [place] SEE-INSTR Medical CTIONS. Branch Take 500 mg day 1, then 250 mg days 2 to 5. acetaminoph 2018-07 Yes [id number] 650mg Take 2 Univers en 325 mg 0-30 tablets by ity of tablet 00:00: mouth [place] 00 every 6 Medical (six) Branch hours as needed for Pain (scale 1-3) or Pain (scale 4-6). 2018-07 Yes [id number] 1{tbl} Take 1 Univers vitamin 0-30 tablet by ity of w/FA tablet 00:00: mouth [place] 00 daily. Medical Branch ibuprofen 2018-07 Yes [id number] 600mg Take 1 Univers 600 mg 0-30 tablet by ity of tablet 00:00: mouth [place] 00 every 6 Medical (six) Branch hours as needed for Pain (scale 1-3) or Pain (scale 4-6) (Pain). Take with food or milk. acetaminoph 2018-07 Yes [id number] 650mg Take 2 Univers en 325 mg 0-30 tablets by ity of tablet 00:00: mouth [place] 00 every 6 Medical (six) Branch hours as needed for Pain (scale 1-3) or Pain (scale 4-6). 2018-07 Yes [id number] 1{tbl} Take 1 Univers vitamin 0-30 tablet by ity of w/FA tablet 00:00: mouth [place] 00 daily. Medical Branch ibuprofen 2018-07 Yes [id number] 600mg Take 1 Univers 600 mg 0-30 tablet by ity of tablet 00:00: mouth [place] 00 every 6 Medical (six) Branch hours as needed for Pain (scale 1-3) or Pain (scale 4-6) (Pain). Take with food or milk. acetaminoph 2018-07 Yes [id number] 650mg Take 2 Univers en 325 mg 0-30 tablets by ity of tablet 00:00: mouth [place] 00 every 6 Medical (six) Branch hours as needed for Pain (scale 1-3) or Pain (scale 4-6). 2018- Yes [id number] 1{tbl} Take 1 Univers vitamin 0-30 tablet by ity of w/FA tablet 00:00: mouth [place] 00 daily. Medical Branch ibuprofen 2018-07 Yes [id number] 600mg Take 1 Univers 600 mg 0-30 tablet by ity of tablet 00:00: mouth [place] 00 every 6 Medical (six) Branch hours as needed for Pain (scale 1-3) or Pain (scale 4-6) (Pain). Take with food or milk. acetaminoph 2018-07 Yes [id number] 650mg Take 2 Univers en 325 mg 0-30 tablets by ity of tablet 00:00: mouth [place] 00 every 6 Medical (six) Branch hours as needed for Pain (scale 1-3) or Pain (scale 4-6). 2018-07 Yes [id number] 1{tbl} Take 1 Univers vitamin 0-30 tablet by ity of w/FA tablet 00:00: mouth [place] 00 daily. Medical Branch ibuprofen 2018-07 Yes [id number] 600mg Take 1 Univers 600 mg 0-30 tablet by ity of tablet 00:00: mouth [place] 00 every 6 Medical (six) Branch hours as needed for Pain (scale 1-3) or Pain (scale 4-6) (Pain). Take with food or milk. Procedures Procedure Date / Time Performed Performing Clinician [facility] e EXTERNAL PROVIDER 2020-07-31 06:01:00 Doctor Unassigned, No Univ [facility] RECORDS Name Medical Branch Encounters Start End Encounter Admission Attending Care Care Encounter Source Date/Time Date/Time Type Type Clinicians Facility Department ID 2020-07-31 2020-07-31 Orders Doctor BROWN [id number] Univers 00:00:00 00:00:00 Only SerassSREEKANTH weeks [id number] ity of [place] [facility] 4.2.7.2.686 Anthony as [phone] [address] 2020-07-31 2020-07-31 Orders Doctor BROWN [id number] 00:00:00 00:00:00 Only UnassignedSREEKANTH 350.1.13.10 [place] [facility] [id number] [id number] 2020-02-17 2020-02-17 Outpatient Anthony MCALLISTER DEKAMINI [facility] [id number] Univers 08:30:00 08:30:00 RAMÓN garcia [facility] 2020-02-13 2020-02-13 Laboratory Only, Pcp Test [facility] [id number]. [id number] Univers 15:09:33 15:24:33 Only Alfie Lopez PRIMARY [id number] ity of CARE 4.2.7.2.686 Miranda huizar [facility] [id number] Me dical 366 Branch 2020-02-13 2020-02-13 Laboratory Only, Pcp [facility] [id number] 15:09:33 15:24:33 Only Test PRIMARY 350.1.13.10 CARE 4.2.7.2.686 [facility] [id number] 2020-02-13 2020-02-13 Outpatient [facility] [id number] Univers 15:00:00 15:00:00 ity [facility] Results Test Description Test Time Test Comments Results Result Comments Source VAGINAL PATHOGENS DNA PANEL 2021-11-22 14:47:02 Test Item Value Reference Range Interpretation Comme nts BERNARDINO SPECIES (test code = NEGATIVE NEGATIVE ) G. VAGINALIS (test code = POSITIVE NEGATIVE A ) T. VAGINALIS (test code = NEGATIVE NEGATIVE U NLESS OTHERWISE INDICATED, ALL ) TESTING PERFORM ED ATCLINICAL PATHOLOGY [facility], [facility]. [address] [place] [id number] LABORATORY DIRE CTOR: BRYNN MARTINEZ M.D. CLIA NUMBER [id number] [place]. [id number] CBC W/AUTO DIFF WITH [id number] 04:29:59 Test Item Value Reference Range Interpretation Comments WBC (test code = 8.3 K/UL 3.5-11.0 1001) RBC (test code = 4.11 M/UL 3.80-5.40 1002) HEMOGLOBIN (test code 13.0 G/DL 11.5-15.5 = 1003) HEMATOCRIT (test code 38.5 % 34.0-45.0 = 1004) MCV (test code = 93.7 fL 80.0-99.0 1005) MCH (test code = 31.6 PG 25.0-33.0 1006) MCHC (test code = 33.8 G/DL 31.0-36.0 1007) RDW (test code = 12.5 % 11.5-15.0 1038) NEUTROPHILS (test 52.9 % code = 1008) LYMPHOCYTES (test 34.1 % code = 1010) MONOCYTES (test code 10.3 % = 1011) EOSINOPHILS (test 2.1 % code = 1012) BASOPHILS (test code 0.5 % = 1013) IMMATURE GRANULOCYTES 0.1 % (test code = 1036) NUCLEATED RBCS (test 0.0 /100 WBC'S See_Comment [Aut omated code = 1065) message] The sy stem which generated this result transmitted reference range : 0.0. The refere nce range was not u sed to interpret th is result as normal/abnormal . PLATELET COUNT (test 268 K/UL 130-400 code = 1015) ABSOLUTE NEUTROPHILS 4.38 K/UL 1.50-7.50 (test code = 1066) ABSOLUTE LYMPHOCYTES 2.82 K/UL 1.00-4.00 (test code = 1067) ABSOLUTE MONOCYTES 0.85 K/UL 0.20-1.00 (test code = 1068) ABSOLUTE EOSINOPHILS 0.17 K/UL 0.00-0.50 (test code = 1040) ABSOLUTE BASOPHILS 0.04 K/UL 0.00-0.20 (test code = 1069) ABS IMMATURE 0.01 K/UL 0.00-0.10 GRANULOCYTES (test code = 1020) ABS NUCLEATED RBCS 0.00 K/UL 0.00-0.11 (test code = 58065)
[2022-06-08] MEDS ORDERED: AMOX/K CLAV 875 MG TAB ONE (21:53)
[2022-06-08] MEDS ORDERED: KETOROLAC 30 MG/ML INJ ONE (21:53)
--- NOTE | 2022-06-08 22:19 | EDPHYS ---
Physician Documentation [facility] Name: Pura Pulido Age: 27 yrs Sex: Female : 1995 Arrival Date: 06/08/2022 Time: 21:37 Bed 12 Private MD: ED Physician Gray Mathis HPI: 06/08 22:56 This 27 yrs old Female presents to ER via Ambulatory with complaints of Facial Swelling.kb 22:56 The patient presents with swelling. The problem is located in the left cheek. Onset: kb The symptoms/episode began/occurred this morning. Duration: The symptoms are continuous. Modifying factors: The symptoms are alleviated by nothing, the symptoms are aggravated by talking, pressure. Associated signs and symptoms: Pertinent positives: pain, swelling, facial. Severity of symptoms: At their worst the symptoms were mild, in the emergency department the symptoms are unchanged. The patient has experienced a previous episode, last week. The patient has not recently seen a physician. Pt reports swelling and tenderness to left cheek that started this morning. States this happened last week, lasted 4 days and went away. 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 Last tetanus immunization: up to date. - Social history:: Smoking status: Patient denies any tobacco usage or history of. ROS: 22:56 Constitutional: Negative for fever, chills, and weight loss. kb 22:56 All other systems are negative. Exam: 22:56 Constitutional: This is a well developed, well nourished patient who is awake, alert, kb and in no acute distress. Head/Face: Normocephalic, atraumatic. Cardiovascular: Regular rate and rhythm with a normal S1 and S2. No gallops, murmurs, or rubs. No pulse deficits. Respiratory: Respirations even and unlabored. No increased work of breathing. Talking in full sentences Abdomen/GI: Soft, non-tender. No distention Skin: Warm, dry with normal turgor. Normal color. MS/ Extremity: Pulses equal, no cyanosis. Neurovascular intact. Full, normal range of motion. Neuro: Awake and alert, GCS 15, oriented to person, place, time, and situation. Moves all extremities. Normal gait. Psych: Awake, alert, with orientation to person, place and time. Behavior, mood, and affect are within normal limits. 22:56 ENT: Dental exam: normal, swelling to left cheek with tenderness to left upper root area. Vital Signs: 21:47 BP 127 / 75; Pulse 60; Resp 18; Temp 98.9; Pulse Ox 98% ; Weight 58.97 kg; Height 5 ft. kb3 1 in. (154.94 cm); Pain 3/10; 21:47 Body Mass Index 24.56 (58.97 kg, 154.94 cm) kb3 MDM: 21:43 Patient medically screened. kb 22:57 Data reviewed: vital signs, nurses notes. Data interpreted: Pulse oximetry: on room air kb is 98 %. Interpretation: normal. Counseling: I had a detailed discussion with the patient and/or guardian regarding: the historical points, exam findings, and any diagnostic results supporting the discharge/admit diagnosis, the need for outpatient follow up, a dentist, to return to the emergency department if symptoms worsen or persist or if there are any questions or concerns that arise at home. Administered Medications: 21:57 Drug: Ketorolac 30 mg Route: IM; Site: right gluteus; bb 22:43 Follow up: Response: No adverse reaction; Pain is decreased kb3 21:57 Drug: Augmentin (Amoxicillin-Clavulanate) 875 mg Route: PO; bb 22:42 Follow up: Response: No adverse reaction kb3 Disposition: 06/09 00:44 Co-signature as Attending Physician, Gray CHEN was immediately available on-site ms3 in the Emergency Department for consultation in the care of the patient. Disposition Summary: 06/08/22 22:18 Discharge Ordered Location: Home kb Condition: Stable kb Diagnosis - Other specified disorders of teeth and supporting structures kb Followup: kb - With: Emergency Department - When: As needed - Reason: Worsening of condition Followup: kb - With: Private Physician - When: 2 - 3 days - Reason: Recheck today's complaints, Continuance of care, Re-evaluation by your physician Discharge Instructions: - Discharge Summary Sheet kb - Dental Pain, [id number] kb - Dental Abscess, [id number] kb Forms: - Medication Reconciliation Form kb - Thank You Letter kb - Antibiotic Education kb - Prescription Opioid Use kb Prescriptions: - Augmentin 875-125 mg Oral Tablet - take 1 tablet by ORAL route every 12 hours for 10 days; 20 tablet; Refills: 0, kb Product Selection Permitted - Diclofenac Sodium 75 mg Oral tablet,delayed release (DR/EC) - take 1 tablet by ORAL route 2 times per day As needed; 30 tablet; Refills: 0, kb Product Selection Permitted Signatures: Jayla Jo, TRADER-C TRADER-Vida Esparza, RN RN bb Gray Mathis DO DO ms3 Belgica Jean, RN RN kb3
--- NOTE | 2022-06-08 22:19 | ER ---
Nurse's Notes [facility] Name: Pura Pulido Age: 27 yrs Sex: Female : 1995 Arrival Date: 06/08/2022 Time: 21:37 Bed 12 Private MD: Diagnosis: Other specified disorders of teeth and supporting structures Presentation: 06/08 21:47 Chief complaint: Patient states: swelling to left cheek since this morning. Coronavirus kb3 screen: Vaccine status: Patient reports being unvaccinated. Client denies travel out of the [place] in the last 14 days. Ebola Screen: Patient negative for fever greater than or equal to 101.5 degrees Fahrenheit, and additional compatible Ebola Virus Disease symptoms Patient denies exposure to infectious person. Patient denies travel to an Ebola-affected area in the 21 days before illness onset. Initial Sepsis Screen: Does the patient meet any 2 criteria? No. Patient's initial sepsis screen is negative. Does the patient have a suspected source of infection? No. Patient's initial sepsis screen is negative. Risk Assessment: Do you want to hurt yourself or someone else? Patient reports no desire to harm self or others. Onset of symptoms was June 08, 2022 at 08:00. 21:47 Method Of Arrival: Ambulatory kb3 21:47 Acuity: UMESH 4 kb3 Triage Assessment: 21:49 General: Appears in no apparent distress. Behavior is calm, cooperative. Pain: kb3 Complains of pain in left cheek Pain does not radiate. Pain currently is 3 out of 10 on a pain scale. 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 Last tetanus immunization: up to date. - Social history:: Smoking status: Patient denies any tobacco usage or history of. Screenin:50 Abuse screen: Denies threats or abuse. Denies injuries from another. Nutritional kb3 screening: No deficits noted. Tuberculosis screening: No symptoms or risk factors identified. Fall Risk None identified. Assessment: 21:50 General: See triage note. kb3 Vital Signs: 21:47 BP 127 / 75; Pulse 60; Resp 18; Temp 98.9; Pulse Ox 98% ; Weight 58.97 kg; Height 5 ft. kb3 1 in. (154.94 cm); Pain 3/10; 21:47 Body Mass Index 24.56 (58.97 kg, 154.94 cm) kb3 ED Course: 21:37 Patient arrived in ED. bp1 21:38 Jayla Jo FNP-C [facility] kb 21:38 Gray Mathis DO is Attending Physician. kb 21:47 Belgica Jean, RN is Primary Nurse. kb3 21:49 Triage completed. kb3 21:49 Arm band placed on right wrist. Patient placed in an exam room. kb3 21:50 Patient has correct armband on for positive identification. kb3 21:50 No provider procedures requiring assistance completed. Patient did not have IV access kb3 during this emergency room visit. Administered Medications: 21:57 Drug: Ketorolac 30 mg Route: IM; Site: right gluteus; bb 22:43 Follow up: Response: No adverse reaction; Pain is decreased kb3 21:57 Drug: Augmentin (Amoxicillin-Clavulanate) 875 mg Route: PO; bb 22:42 Follow up: Response: No adverse reaction kb3 Medication: 21:50 VIS not applicable for this client. kb3 Outcome: 22:18 Discharge ordered by MD. kb 22:43 Discharged to home ambulatory. kb3 22:43 Condition: improved 22:43 Discharge instructions given to patient, Instructed on discharge instructions, follow up and referral plans. medication usage, Demonstrated understanding of instructions, follow-up care, medications, Prescriptions given X 1. 22:43 Patient left the ED. kb3 Signatures: Jayla Jo FNP-C FNP-Vida Esparza RN Ashley Meek Kelly, RN RN kb3
[2022-06-08 22:49] VITALS: BP 127/75; TEMP 98.9; O2SAT 98
== END 2022-06-08 22:43 | disposition home or self-care (01) ==
LOC: ER 21:15
DX: K08.89 Other specified disorders of teeth and supporting structures (principal)
CPT/HCPCS: 96372; 99283

== ENCOUNTER 2022-06-13 02:43 | Emergency (ER) | payer SELFPAY ==
--- OUTSIDE RECORDS SUMMARY | 2022-06-13 02:46 | XMS REPORT | Continuity of Care Document ---
:1995 Author Organization [facility] t Address [address] [place] [address] Care Team Providers Name Role Phone Doctor Unassigned, [place] Attending Clinician Unavailable RAMÓN MCALLISTER Attending Clinician Unavailable Only, Pcp Test Attending Clinician Unavailable John MENESES, Alfie Wood Attending Clinician Payers Payer Name Policy Type Policy Number Effective Date Expiration Date [facility] [id number] 2015 00:00:00 Problems Condition Condition Condition Status Onset Resolution Last Treating Co mments Source Name Details Category Date Date Treatment Clinician Date 38 weeks 38 weeks Disease Active 2018-07 Unive rs gestation gestation 0-28 ity of of of 00:00: [place] 00 [facility] Heroin use Heroin use Disease [...] of Tartrate adverse 00:00: [place] reaction 00 [facility] Branch BUTORPHA DRUG Active Hallucinates Un forest NOL INGREDI 4-05 ity of TARTRATE 00:00: [place] 00 [facility] Acetamin Propensi Active Hives Univer s ophen-Pa ty to 4-05 ity of mabrom adverse 00:00: [place] reaction 00 [facility] ACETAMIN DRUG Active Hives Univers OPHEN-PA 4-05 ity of MABROM 00:00: [place] 00 [facility] Social History Social Habit Start Date Stop Date Quantity Comments Source Sex Assigned At [facility] y of [facility] Tobacco use and 2019-06-21 2019-06-21 Never used Universit y of exposure 00:00:00 00:00:00 [facility] Alcohol intake 2019-06-21 2019-06-21 Current [facility] 00:00:00 00:00:00 non-drinker of [facility] alcohol [place] (finding) Tobacco Comment 2015-11-29 2015-11-29 5 cigs a day Univers ity of 00:00:00 00:00:00 [facility] Smoking Status Start Date Stop Date Source Current every day smoker 2019-06-21 00:00:[address] [facility] Medications Ordered Filled Start Stop Current Ordering Indication Dosage Frequency Signature Comments Components Source Medication Medication Date Date Medication? Clinician (SIG) Name Name padmini 2018-07 Yes [id number] 250mg Take 1 Univers n 250 mg 1-26 tablet by ity of tablet 00:00: mouth [place] SEE-INSTR Medical CTIONS. Branch Take 500 mg day 1, then 250 mg days 2 to 5. padmini 2018-07 Yes [id number] 250mg Take 1 Univers n 250 mg 1-26 tablet by ity of tablet 00:00: mouth [place] SEE-INSTRU Medical CTIONS. Branch Take 500 mg day 1, then 250 mg days 2 to 5. padmini 2018-07 Yes [id number] 250mg Take 1 Univers n 250 mg 1-26 tablet by ity of tablet 00:00: mouth [place] SEEINSTRU Medical CTIONS. Branch Take 500 mg day 1, then 250 mg days 2 to 5. padmini 2018-07 Yes [id number] 250mg Take 1 Univers n 250 mg 1-26 tablet by ity of tablet 00:00: mouth [place] SEE-INSTR Medical CTIONS. Branch Take 500 mg day 1, then 250 mg days 2 to 5. acetaminoph 2018-07 Yes [id number] 650mg Take 2 Univers en 325 mg 0-30 tablets by ity of tablet 00:00: mouth [place] 00 every 6 Medical (six) Branch hours as needed for Pain (scale 1-3) or Pain (scale 4-6). 2018-07 Yes [id number] 1{tbl} Take 1 Univers vitamin 0-30 tablet by ity of w/FA tablet 00:00: mouth [place] 00 daily. Medical Branch ibuprofen 2018-07 Yes [id number] 600mg Take 1 Univers 600 mg 0-30 tablet by ity of tablet 00:00: mouth [place] 00 every 6 Medical (six) Branch hours as needed for Pain (scale 1-3) or Pain (scale 4-6) (Pain). Take with food or milk. acetaminoph 2018-07 Yes [id number] 650mg Take 2 Univers en 325 mg 0-30 tablets by ity of tablet 00:00: mouth [place] 00 every 6 Medical (six) Branch hours as needed for Pain (scale 1-3) or Pain (scale 4-6). 2018-07 Yes [id number] 1{tbl} Take 1 Univers vitamin 0-30 tablet by ity of w/FA tablet 00:00: mouth [place] 00 daily. Medical Branch ibuprofen 2018-07 Yes [id number] 600mg Take 1 Univers 600 mg 0-30 tablet by ity of tablet 00:00: mouth [place] 00 every 6 Medical (six) Branch hours as needed for Pain (scale 1-3) or Pain (scale 4-6) (Pain). Take with food or milk. acetaminoph 2018-07 Yes [id number] 650mg Take 2 Univers en 325 mg 0-30 tablets by ity of tablet 00:00: mouth [place] 00 every 6 Medical (six) Branch hours as needed for Pain (scale 1-3) or Pain (scale 4-6). 2018- Yes [id number] 1{tbl} Take 1 Univers vitamin 0-30 tablet by ity of w/FA tablet 00:00: mouth [place] 00 daily. Medical Branch ibuprofen 2018-07 Yes [id number] 600mg Take 1 Univers 600 mg 0-30 tablet by ity of tablet 00:00: mouth [place] 00 every 6 Medical (six) Branch hours as needed for Pain (scale 1-3) or Pain (scale 4-6) (Pain). Take with food or milk. acetaminoph 2018-07 Yes [id number] 650mg Take 2 Univers en 325 mg 0-30 tablets by ity of tablet 00:00: mouth [place] 00 every 6 Medical (six) Branch hours as needed for Pain (scale 1-3) or Pain (scale 4-6). 2018-07 Yes [id number] 1{tbl} Take 1 Univers vitamin 0-30 tablet by ity of w/FA tablet 00:00: mouth [place] 00 daily. Medical Branch ibuprofen 2018-07 Yes [id number] 600mg Take 1 Univers 600 mg 0-30 tablet by ity of tablet 00:00: mouth [place] 00 every 6 Medical (six) Branch hours as needed for Pain (scale 1-3) or Pain (scale 4-6) (Pain). Take with food or milk. Procedures Procedure Date / Time Performed Performing Clinician [facility] e EXTERNAL PROVIDER 2020-07-31 06:01:00 Doctor Unassigned, No Univ [facility] RECORDS Name Medical Branch Encounters Start End Encounter Admission Attending Care Care Encounter Source Date/Time Date/Time Type Type Clinicians Facility Department ID 2020-07-31 2020-07-31 Orders Doctor BROWN [id number] [id number] Univers 00:00:00 00:00:00 Only SerassSREEKANTH weeks [id number] ity of [place] [facility] 4.2.7.2.686 Anthony as [id number] [address] 2020-07-31 2020-07-31 Orders Doctor BROWN [id number] [id number] 00:00:00 00:00:00 Only UnassignedSREEKANTH 350.1.13.10 [place] [facility] 4.2.7.2.686 [id number] 2020-02-17 2020-02-17 Outpatient Anthony MCALLISTER HIKAMINI [facility] [id number] Univers 08:30:00 08:30:00 RAMÓN garcia [facility] 2020-02-13 2020-02-13 Laboratory Only, Pcp Test [facility] 1.2.840. [id number] Univers 15:09:33 15:24:33 Only Alfie Lopez PRIMARY 350.1.13.10 ity of CARE 4.2.7.2.686 Miranda huizar [facility] [id number] Me dical 366 Branch 2020-02-13 2020-02-13 Laboratory Only, Pcp [facility] [id number] 15:09:33 15:24:33 Only Test PRIMARY 350.1.13.10 CARE 4.2.7.2.686 [facility]ION [id number] 2020-02-13 2020-02-13 Outpatient R [facility] [id number] Univers 15:00:00 15:00:00 ity [facility] Results Test Description Test Time Test Comments Results Result Comments Source VAGINAL PATHOGENS DNA PANEL 2021-11-22 14:47:02 Test Item Value Reference Range Interpretation Comme nts BERNARDINO SPECIES (test code = NEGATIVE NEGATIVE ) G. VAGINALIS (test code = POSITIVE NEGATIVE A ) T. VAGINALIS (test code = NEGATIVE NEGATIVE U NLESS OTHERWISE INDICATED, ALL ) TESTING PERFORM ED ATCLINICAL PATHOLOGY [facility], [facility]. [address] [place] [id number] LABORATORY DIRE CTOR: BRYNN MARTINEZ M.D. CLIA NUMBER [id number] [place]. [id number] CBC W/AUTO DIFF WITH [id number] 04:29:59 Test Item Value Reference Range Interpretation [...] RBCS 0.00 K/UL 0.00-0.11 (test code = 06975)
[2022-06-13] MEDS ORDERED: ONDANSETRON 4 MG (ODT) TAB ONE (03:48)
[2022-06-13] MEDS ORDERED: MORPHINE 4 MG/ML SYR ONE ×2 (03:48→04:59)
[2022-06-13] MEDS ORDERED: IBUPROFEN 400 MG TAB ONE (05:03)
[2022-06-13] MEDS ORDERED: CLINDAMYCIN 900MG/D5W 900 MG/50 ML IVPB IV ONE (06:26)
[2022-06-13] MEDS ORDERED: CEFTRIAXONE 2000 MG/VIAL ONE (06:26)
[2022-06-13] MEDS ORDERED: NA CHLORIDE 0.9% 50 ML IV ONE (06:26)
--- NOTE | 2022-06-13 06:39 | ER ---
Nurse's Notes [facility] Name: Pura Pulido Age: 27 yrs Sex: Female : 1995 Arrival Date: 06/13/2022 Time: 02:44 Bed 15 Private MD: Diagnosis: Dental caries, unspecified-odontogenic abscess;Dental root caries Presentation: 06/13 02:52 Chief complaint: Patient states: she was seen here on the for a tooth infection to bb her left upper jaw started on Augmentin but the pain is getting worse and her face is getting more swollen. Coronavirus screen: At this time, the client does not indicate any symptoms associated with coronavirus-19. Ebola Screen: No symptoms or risks identified at this time. Initial Sepsis Screen: Does the patient meet any 2 criteria? No. Patient's initial sepsis screen is negative. Does the patient have a suspected source of infection? No. Patient's initial sepsis screen is negative. Risk Assessment: Do you want to hurt yourself or someone else? Patient reports no desire to harm self or others. Onset of symptoms was June 06, 2022. 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 - Social history:: Smoking status: Patient denies any tobacco usage or history of. Screenin:57 Abuse screen: Denies threats or abuse. Nutritional screening: No deficits noted. bb Tuberculosis screening: No symptoms or risk factors identified. Fall Risk None identified. Assessment: 02:57 General: Appears uncomfortable, Behavior is cooperative, anxious. Pain: Complains of bb pain in left upper jaw Pain currently is 9 out of 10 on a pain scale. Neuro: Level of Consciousness is awake, alert, obeys commands, Oriented to person, place, time, situation. Cardiovascular: Capillary refill < 3 seconds Patient's skin is warm and dry. Respiratory: Respiratory effort is unlabored. GI: No signs and/or symptoms were reported involving the gastrointestinal system. EENT: Dental caries noted in upper left first molar (#14) Reports pain in upper left jaw and face. Derm: Skin is pink, warm \T\ dry. Musculoskeletal: Circulation, motion, and sensation intact. Vital Signs: 02:52 BP 130 / 92; Pulse 82; Resp 20 S; Temp 98.7(O); Pulse Ox 96% on R/A; Weight 58.97 kg bb (R); Height 5 ft. 1 in. (154.94 cm) (R); Pain 9/10; 02:52 Body Mass Index 24.56 (58.97 kg, 154.94 cm) bb ED Course: 02:44 Patient arrived in ED. bp1 02:54 Triage completed. bb 02:54 Arm band placed on Patient placed in an exam room, on a stretcher, on pulse oximetry. bb Family accompanied patient. 02:56 Tay Villalta MD is Attending Physician. kdr 02:57 Patient has correct armband on for positive identification. Call light in reach. Adult bb w/ patient. 03:52 CT Facial Bones W/O Con In Process Unspecified. EDMS 05:10 Ayleen Banks, DEWAYNE is Primary Nurse. vc1 05:42 Attending Physician role handed off by Tay Villalta MD lorelei 05:42 Sancho Pratt MD is Attending Physician. lorelei 06:37 Ayo Cazares DDS is Referral Physician. lorelei Administered Medications: 03:52 Drug: morphine 4 mg Route: IM; Site: right deltoid; ll3 03:52 Drug: Zofran (Ondansetron) 4 mg Route: PO; ll3 05:11 Drug: morphine 4 mg Route: IM; Site: left deltoid; vc1 05:11 Drug: Ibuprofen 800 mg Route: PO; vc1 06:46 Drug: Rocephin (cefTRIAXone) 2 grams Route: IV; Rate: per protocol; Site: right vc1 antecubital; 07:09 Follow up: IV Status: Completed infusion vg1 07:09 Drug: Clindamycin 900 mg Route: IVPB; Infused Over: 30 mins; Site: right forearm; vg1 07:13 Drug: [place] (HYDROcodone-acetaminophen) (7.5 mg-325 mg) 1 tabs Route: PO; kd3 Medication: 02:57 VIS not applicable for this client. bb Outcome: 06:38 Discharge ordered by . lorelei 07:38 Patient left the ED. vg1 Signatures: Dispatcher [employer] EDSancho Zuniga MD MD cha Rittger, Kevin, MD MD kdr Ballard, Brenda, RN RN Gemma Cleaning, RN RN vg1 Ashley Jon Lyn[place], RN RN ll3 Candi Adame RN RN kd3 Ayleen Banks RN RN vc1
--- NOTE | 2022-06-13 06:39 | EDPHYS ---
Physician Documentation [facility] Name: Pura Pulido Age: 27 yrs Sex: Female : 1995 Arrival Date: 06/13/2022 Time: 02:44 Bed 15 Private MD: ED Physician Sancho Pratt HPI: 06/13 04:15 This 27 yrs old Female presents to ER via Ambulatory with complaints of Facial Swelling.kdr 04:15 Patient was seen here about a week ago and put on antibiotics for a dental infection. kdr At the time she has significant swelling to the left side of her face. Since then the swelling has largely resolved but she has had increased pain under her left eye and swelling on her left maxillary gum area. She states that the pain is significant and unbearable. She denies any further fever. She denies any change in her vision.. Onset: The symptoms/episode began/occurred gradually, 1 week(s) ago. Severity of symptoms: At their worst the symptoms were moderate severe in the emergency department the symptoms are unchanged. The patient has not experienced similar symptoms in the past. The patient has been recently seen by a physician: The patient has been recently seen at the [facility] Emergency Department, last week. 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 - Social history:: Smoking status: Patient denies any tobacco usage or history of. ROS: 04:15 Constitutional: Negative for fever, chills, and weight loss, Eyes: Negative for injury, kdr pain, redness, and discharge, Neck: Negative for injury, pain, and swelling, Cardiovascular: Negative for chest pain, palpitations, and edema, Respiratory: Negative for shortness of breath, cough, wheezing, and pleuritic chest pain, Abdomen/GI: Negative for abdominal pain, nausea, vomiting, diarrhea, and constipation. 04:15 ENT: Positive for dental pain, Gum pain of the gums. Exam: 04:15 Constitutional: This is a well developed, well nourished patient who is awake, alert, kdr and in no acute distress. Head/Face: Normocephalic, atraumatic. Eyes: Pupils equal round and reactive to light, extra-ocular motions intact. Lids and lashes normal. Conjunctiva and sclera are non-icteric and not injected. Cornea within normal limits. Periorbital areas with no swelling, redness, or edema. Neck: Trachea midline, no thyromegaly or masses palpated, and no cervical lymphadenopathy. Supple, full range of motion without nuchal rigidity, or vertebral point tenderness. No Meningismus. 04:15 ENT: Dental exam: abscess, that is moderate, specifically in the upper left first bicuspid (#12) and upper left second bicuspid (#13). 06:39 ENT: Mouth: Gums: noted to have cellulitis, swollen, spontaneous rupture of abscess, lorelei moderate purulent dc. Vital Signs: 02:52 BP 130 / 92; Pulse 82; Resp 20 S; Temp 98.7(O); Pulse Ox 96% on R/A; Weight 58.97 kg bb (R); Height 5 ft. 1 in. (154.94 cm) (R); Pain 9/10; 02:52 Body Mass Index 24.56 (58.97 kg, 154.94 cm) bb MDM: 04:15 Data reviewed: vital signs, nurses notes, lab test result(s), radiologic studies. kdr Counseling: I had a detailed discussion with the patient and/or guardian regarding: the historical points, exam findings, and any diagnostic results supporting the discharge/admit diagnosis, lab results, radiology results, the need for outpatient follow up. 05:42 Patient medically screened. [facility] 06/13 03:31 Order name: CT Facial Bones W/O Con kdr Administered Medications: 03:52 Drug: morphine 4 mg Route: IM; Site: right deltoid; ll3 03:52 Drug: Zofran (Ondansetron) 4 mg Route: PO; ll3 05:11 Drug: morphine 4 mg Route: IM; Site: left deltoid; vc1 05:11 Drug: Ibuprofen 800 mg Route: PO; vc1 06:46 Drug: Rocephin (cefTRIAXone) 2 grams Route: IV; Rate: per protocol; Site: right vc1 antecubital; 07:09 Follow up: IV Status: Completed infusion vg1 07:09 Drug: Clindamycin 900 mg Route: IVPB; Infused Over: 30 mins; Site: right forearm; vg1 07:13 Drug: [place] (HYDROcodone-acetaminophen) (7.5 mg-325 mg) 1 tabs Route: PO; kd3 Disposition Summary: 06/13/22 06:38 Discharge Ordered Location: Home lorelei Problem: new lorelei Symptoms: have improved lorelei Condition: Stable lorelei Diagnosis - Dental caries, unspecified - odontogenic abscess lorelei - Dental root caries lorelei Followup: lorelei - With: Private Physician - When: 2 - 3 days - Reason: Recheck today's complaints, Continuance of care, Re-evaluation by your physician Followup: lorelei - With: Ayo Cazares DDS - When: 2 - 3 days - Reason: Recheck today's complaints, Re-evaluation by your physician Discharge Instructions: - Discharge Summary Sheet lorelei - Dental Caries, Adult lorelei - Dental Pain lorelei - Dental Pain, [id number] lorelei - Diet and Dental Disease lorelei - Dental Caries, Adult, [id number] [facility] Forms: - Medication Reconciliation Form lorelei - Thank You Letter lorelei - Antibiotic Education lorelei - Prescription Opioid Use lorelei - Work release form eb Prescriptions: - Clindamycin HCl 300 mg Oral Capsule - take 1 capsule by ORAL route every 6 hours for 10 days; 40 capsule; Refills: 0, [facility] Product Selection Permitted - Ibuprofen 600 mg Oral Tablet - take 1 tablet by ORAL route every 6 hours As needed take with food; 30 tablet; lorelei Refills: 0, Product Selection Permitted - Tylenol-Codeine #3 300 mg-30 mg Oral - take 2 tablet by ORAL route every 6 hours; 24 tablet; Refills: 0, Product [facility] Selection Permitted Signatures: Dispatcher [employer] Sancho Turner MD MD cha Rittger, Kevin, MD MD kdr Ballard, Brenda RN RN Gemma Cleaning RN RN vg1 Ebonie Mcgee RN RN ll3 Candi Adame RN RN kd3 Ayleen Banks RN RN vc1
[2022-06-13] MEDS ORDERED: HYDROCODONE/APAP 7.5/325 MG TAB ONE (06:49)
[2022-06-13 07:44] VITALS: BP 130/92; TEMP 98.7; O2SAT 96
--- NOTE | 2022-06-13 18:28 | RAD REPORT ---
EXAM DESCRIPTION: CT - Facial Bones W/ Mpr - 06/13/2022 6:46 am CLINICAL HISTORY: The patient is 27 years old and is Female; Maxillary/facial abscess TECHNIQUE: Axial computed tomography images of the face without intravenous contrast. Sagittal and coronal reformatted images were created and reviewed. This CT exam was performed using one or more of the following dose reduction techniques: automated exposure control, adjustment of the mA and/o r kV according to patient size, and/or use of iterative reconstruction technique. COMPARISON: No relevant prior studies available. FINDINGS: Bones/joints: No acute fracture. Leftward nasal septal deviation. Soft tissues: Medial left facial/upper lip soft tissue swelling. Orbits: Unremarkable. Sinuses: Minimal mucosal thickening in the maxillary sinuses. No air-fluid levels. Dental: Bilateral maxillary and mandibular dental caries. IMPRESSION: Medial left facial/upper lip soft tissue swelling. Unable to evaluate for abscess withou t IV contrast. Multifocal dental disease. Electronically signed by: Lola Henley MD 06/13/2022 5:14 AM CORE MEASURES ABSTRACTOR Due to temporary technical issues with the PACS/Fluency reporting system, reports are being signed by the in house radiologists without review as a courtesy to insure prompt reporting. The interpreting radiologist is fully responsible for the content of the report.
== END 2022-06-13 07:38 | disposition home or self-care (01) ==
LOC: ER 02:43
DX: K04.7 Periapical abscess without sinus (principal); K02.7 Dental root caries; K02.9 Dental caries, unspecified
CPT/HCPCS: 70486; 76377; 96365; 96372; 96375; 99283; J0696; Q0162

== ENCOUNTER 2022-11-25 12:05 | Emergency (ER) | payer SELFPAY ==
--- OUTSIDE RECORDS SUMMARY | 2022-11-25 12:13 | XMS REPORT | Continuity of Care Document ---
:1995 Author Organization [facility] t Address [address] [place] [address] [address] [place] [address] Care Team Providers Name Role Phone Doctor Unassigned, [place] Attending Clinician Unavailable RAMÓN MCALLISTER Attending Clinician Unavailable Only, Pcp Test Attending Clinician Unavailable Alfie Lopez MD Attending Clinician Payers Payer Name Policy Type Policy Number Effective Date Expiration Date [facility] [id number] 2015 00:00:00 Problems Condition Condition Condition Status Onset Resolution Last Treating Co mments Source Name Details Category Date Date Treatment Clinician Date 38 weeks 38 weeks Disease Active 2018-07 Unive rs gestation gestation 0-28 ity of of of 00:00: [place] 00 [facility] Heroin use Heroin use Disease [...] 4-05 ity of disorder disorder 00:00: [place] [address] [place] [address] Branch Allergies, Adverse Reactions, Alerts Allergy Allergy Status Severity Reaction(s) Onset Inactive Treating Comm ents Source Name Type Date Date Clinician Butorpha Propensi Active Itching Unive rs nol ty to 4-05 ity of Tartrate adverse 00:00: [place] reaction [address] [place] [address] BUTORPHA DRUG Active Hallucinates Un forest NOL INGREDI 4-05 ity of TARTRATE 00:00: [place] 00 [facility] Acetamin Propensi Active Hives Univer s ophen-Pa ty to 4-05 ity of mabrom adverse 00:00: [place] reaction 00 [facility] ACETAMIN DRUG Active Hives Univers OPHEN-PA 4-05 ity of MABROM 00:00: 00 Medical [place] Social History Social Habit Start Date Stop Date Quantity Comments Source Sex Assigned At [facility] y of [facility] Tobacco use and 2019-06-21 2019-06-21 Never used Universit y of exposure 00:00:00 00:00:00 [facility] Alcohol intake 2019-06-21 2019-06-21 Current University of 00:00:00 00:00:00 non-drinker of [facility] alcohol [place] (finding) Tobacco Comment 2015-11-29 2015-11-29 5 cigs a day Univers ity of 00:00:00 00:00:00 [facility] Smoking Status Start Date Stop Date Source Current every day smoker 2019-06-21 00:00:00 Uni versity of [facility] Medications Ordered Filled Start Stop Current Ordering Indication Dosage Frequency Signature Comments Components Source Medication Medication Date Date Medication? Clinician (SIG) Name Name padmini 2018-07 Yes [id number] 250mg Take 1 Univers n 250 mg 1-26 tablet by ity of tablet 00:00: mouth [place] SEE-INSTRU Medical CTIONS. Branch Take 500 mg day 1, then 250 mg days 2 to 5. padmini 2018-07 Yes [id number] 250mg Take 1 Univers n 250 mg 1-26 tablet by ity of tablet 00:00: mouth [place] SEE-INSTRU Medical CTIONS. Branch Take 500 mg day 1, then 250 mg days 2 to 5. padmini 2018-07 Yes [id number] 250mg Take 1 Univers n 250 mg 1-26 tablet by ity of tablet 00:00: mouth [place] SEE-INSTRU Medical CTIONS. Branch Take 500 mg day 1, then 250 mg days 2 to 5. padmini 2018-07 Yes [id number] 250mg Take 1 Univers n 250 mg 1-26 tablet by ity of tablet 00:00: mouth SEE-INSTRU Medical CTIONS. Branch Take 500 mg day 1, then 250 mg days 2 to 5. acetaminoph 2018-07 Yes [id number] 650mg Take 2 Univers en 325 mg 0-30 tablets by ity of tablet 00:00: mouth [place] 00 every 6 Medical (six) Branch hours as needed for Pain (scale 1-3) or Pain (scale 4-6). 2018-07 Yes [id number] 1{tbl} Take 1 Univers vitamin 0-30 tablet by ity of w/FA tablet 00:00: mouth [place] 00 daily. Medical Branch ibuprofen 2018-07 Yes [id number] 600mg Take 1 Univers 600 mg 0-30 tablet by ity of tablet 00:00: mouth [place] 00 every 6 Medical (six) Branch hours as needed for Pain (scale 1-3) or Pain (scale 4-6) (Pain). Take with food or milk. acetaminoph 2018-07 Yes [id number] 650mg Take 2 Univers en 325 mg 0-30 tablets by ity of tablet 00:00: mouth [place] 00 every 6 Medical (six) Branch hours as needed for Pain (scale 1-3) or Pain (scale 4-6). 2018-07 Yes [id number] 1{tbl} Take 1 Univers vitamin 0-30 tablet by ity of w/FA tablet 00:00: mouth [place] 00 daily. Medical Branch ibuprofen 2018-07 Yes [id number] 600mg Take 1 Univers 600 mg 0-30 tablet by ity of tablet 00:00: mouth [place] 00 every 6 Medical (six) Branch hours as needed for Pain (scale 1-3) or Pain (scale 4-6) (Pain). Take with food or milk. acetaminoph 2018-07 Yes [id number] 650mg Take 2 Univers en 325 mg 0-30 tablets by ity of tablet 00:00: mouth [place] 00 every 6 Medical (six) Branch hours as needed for Pain (scale 1-3) or Pain (scale 4-6). 2018- Yes [id number] 1{tbl} Take 1 Univers vitamin 0-30 tablet by ity of w/FA tablet 00:00: mouth [place] 00 daily. Medical Branch ibuprofen 2018-07 Yes [id number] 600mg Take 1 Univers 600 mg 0-30 tablet by ity of tablet 00:00: mouth [place] 00 every 6 Medical (six) Branch hours as needed for Pain (scale 1-3) or Pain (scale 4-6) (Pain). Take with food or milk. acetaminoph 2018-07 Yes [id number] 650mg Take 2 Univers en 325 mg 0-30 tablets by ity of tablet 00:00: mouth [place] 00 every 6 Medical (six) Branch hours as needed for Pain (scale 1-3) or Pain (scale 4-6). 2018-07 Yes [id number] 1{tbl} Take 1 Univers vitamin 0-30 tablet by ity of w/FA tablet 00:00: mouth [place] 00 daily. Medical Branch ibuprofen 2018-07 Yes [id number] 600mg Take 1 Univers 600 mg 0-30 tablet by ity of tablet 00:00: mouth [place] 00 every 6 Medical (six) Branch hours as needed for Pain (scale 1-3) or Pain (scale 4-6) (Pain). Take with food or milk. Procedures Procedure Date / Time Performed Performing Clinician [facility] e EXTERNAL PROVIDER 2020-07-31 06:01:00 Doctor Unassigned, No [facility] RECORDS Name Medical Branch Encounters Start End Encounter Admission Attending Care Care Encounter Source Date/Time Date/Time Type Type Clinicians Facility Department ID 2020-07-31 2020-07-31 Orders Doctor BROWN [id number] Univers 00:00:00 00:00:00 Only UnassSREEKANTH weeks 350.1.13.10 ity of [place] [facility] 4.2.7.2.686 Anthony as [id number] [place] [address] Branch 2020-07-31 2020-07-31 Orders Doctor BROWN 1.2.840.114 [id number] 00:00:00 00:00:00 Only UnassignedSREEKANTH 350.1.13.10 [place] [facility] 4.2.7.2.686 [id number] 2020-02-17 2020-02-17 Outpatient R ARY NCKAMINI [facility] [id number] Univers 08:30:00 08:30:00 RAMÓN garcia [facility] 2020-02-13 2020-02-13 Laboratory Only, Pcp Test [facility] 1.2.840. 114 [id number] Univers 15:09:33 15:24:33 Only [place], Alfie H PRIMARY 350.1.13.10 ity of CARE 4.2.7.2.686 Miranda REDDINGON [id number] Me dical 366 Branch 2020-02-13 2020-02-13 Laboratory Only, Pcp [facility] 1.2.840.114 [id number] 15:09:33 15:24:33 Only Test PRIMARY 350.1.13.10 CARE 4.2.7.2.686 PAVILLION [id number] 2020-02-13 2020-02-13 Outpatient R [facility] [id number] Univers 15:00:00 15:00:00 ity [facility] Results Test Description Test Time Test Comments Results Result Comments Source VAGINAL PATHOGENS DNA PANEL 2021-11-22 14:47:02 Test Item Value Reference Range Interpretation Comme nts BERNARDINO SPECIES (test code = NEGATIVE NEGATIVE ) G. VAGINALIS (test code = POSITIVE NEGATIVE A ) T. VAGINALIS (test code = NEGATIVE NEGATIVE U NLESS OTHERWISE INDICATED, ALL ) TESTING PERFORM ED ATCLINICAL PATHOLOGY [facility]. [address] [place] [id number] LABORATORY DIRE CTOR: BRYNN MARTINEZ M.D. CLIA NUMBER [id number] [place]. [id number] CBC W/AUTO DIFF WITH [id number] 04:29:59 Test Item Value Reference Range Interpretation [...] RBCS 0.00 K/UL 0.00-0.11 (test code = 80009)
--- NOTE | 2022-11-25 12:36 | EDPHYS ---
Physician Documentation [facility] Name: Pura Pulido Age: 27 yrs Sex: Female : 1995 Arrival Date: 11/25/2022 Time: 12:05 Bed IW1 Private MD: ED Physician Orlin Smith HPI: 11/25 13:02 This 27 yrs old Female presents to ER via Ambulatory with complaints of Fever, Cough, kb Ear Pain. 13:02 The patient or guardian reports cough, that is intermittent, described as mild, flu kb symptoms, low-grade fever, myalgias. Onset: The symptoms/episode began/occurred 5 day(s) ago. Severity of symptoms: At their worst the symptoms were moderate, in the emergency department the symptoms are unchanged. Modifying factors: The symptoms are alleviated by nothing, the symptoms are aggravated by nothing. Associated signs and symptoms: Pertinent positives: earache, fever, rhinorrhea, sore throat. The patient has not experienced similar symptoms in the past. The patient has not recently seen a physician. 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 - Social history:: Smoking status: Reported history of juuling and/or vaping. ROS: 13:00 Abdomen/GI: Negative for abdominal pain, nausea, vomiting, diarrhea, and constipation. kb 13:00 Constitutional: Positive for body aches, chills, fatigue, fever, malaise. 13:00 ENT: Positive for ear pain, rhinorrhea, sinus congestion, sore throat. kb 13:00 Respiratory: Positive for cough. 13:00 All other systems are negative. Exam: 13:00 Constitutional: This is a well developed, well nourished patient who is awake, alert, kb and in no acute distress. Head/Face: Normocephalic, atraumatic. Cardiovascular: Regular rate and rhythm with a normal S1 and S2. No gallops, murmurs, or rubs. No pulse deficits. Respiratory: Respirations even and unlabored. No increased work of breathing. Talking in full sentences Abdomen/GI: Soft, non-tender. No distention Skin: Warm, dry with normal turgor. Normal color. MS/ Extremity: Pulses equal, no cyanosis. Neurovascular intact. Full, normal range of motion. Neuro: Awake and alert, GCS 15, oriented to person, place, time, and situation. Moves all extremities. Normal gait. 13:00 ENT: External ear(s): are unremarkable, Ear canal(s): are normal, TM's: bulging, on the left, erythema, that is moderate, on the left, Examination of the other ear shows no obvious abnormality. Vital Signs: 12:54 BP 122 / 75; Pulse 64; Resp 16; Temp 98.5(O); Pulse Ox 100% on R/A; Weight 54.43 kg; vg1 Height 5 ft. 1 in. ; 12:54 Body Mass Index 22.67 (54.43 kg, 154.94 cm) vg1 MDM: 12:26 Patient medically screened. 13:01 Differential diagnosis: strep, sinusitis, otitis media, flu, covid, uri, bronchitis, kb peumonia. Data reviewed: vital signs, nurses notes. Test considered but Not performed: Labs: flu, covid and strep tests considered, but would not change plan of care. X-ray: chest x-ray considered, but resp even and unlabored, lungs clear bilaterally and o2 sat 100%. Counseling: I had a detailed discussion with the patient and/or guardian regarding: the historical points, exam findings, and any diagnostic results supporting the discharge/admit diagnosis, the need for outpatient follow up, a family practitioner, to return to the emergency department if symptoms worsen or persist or if there are any questions or concerns that arise at home. Administered Medications: 13:02 Drug: predniSONE PO 40 mg Route: PO; vg1 13:03 Follow up: Response: Medication administered at discharge. vg1 Disposition Summary: 11/25/22 12:35 Discharge Ordered Location: Home kb Condition: Stable kb Diagnosis - Other acute sinusitis kb - Otitis media, unspecified, left ear kb Followup: kb - With: Emergency Department - When: As needed - Reason: Worsening of condition Followup: kb - With: Private Physician - When: 2 - 3 days - Reason: Recheck today's complaints, Continuance of care, Re-evaluation by your physician Discharge Instructions: - Discharge Summary Sheet kb - Otitis Media, Adult, Quke-xp-Freg kb - Sinusitis, Adult, Enhp-if-Qowt kb Forms: - Medication Reconciliation Form kb - Thank You Letter kb - Antibiotic Education kb - Prescription Opioid Use kb Prescriptions: - Amoxicillin 875 mg Oral Tablet - take 1 tablet by ORAL route every 12 hours for 10 days; 20 tablet; Refills: 0, kb Product Selection Permitted Signatures: Jayla Jo, Gemma Springer, RN RN vg1
--- NOTE | 2022-11-25 13:04 | ER ---
Nurse's Notes [facility] Name: Pura Pulido Age: 27 yrs Sex: Female : 1995 Arrival Date: 11/25/2022 Time: 12:05 Bed IW1 Private MD: Diagnosis: Other acute sinusitis;Otitis media, unspecified, left ear Presentation: 11/25 12:54 Chief complaint: Patient states: cough, congestion and fever with Left ear pain x 5 vg1 days. Coronavirus screen: Vaccine status: Patient reports being unvaccinated. Client denies travel out of the [place] in the last 14 days. Ebola Screen: Patient negative for fever greater than or equal to 101.5 degrees Fahrenheit, and additional compatible Ebola Virus Disease symptoms Patient denies exposure to infectious person. Patient denies travel to an Ebola-affected area in the 21 days before illness onset. Initial Sepsis Screen: Does the patient meet any 2 criteria? No. Patient's initial sepsis screen is negative. Does the patient have a suspected source of infection? No. Patient's initial sepsis screen is negative. Risk Assessment: Do you want to hurt yourself or someone else? Patient reports no desire to harm self or others. Onset of symptoms was November 20, 2022. 12:54 Method Of Arrival: Ambulatory vg1 12:54 Acuity: UMESH 4 vg1 Triage Assessment: 12:56 General: Appears in no apparent distress. uncomfortable, Behavior is calm, cooperative. vg1 EENT: Throat is clear. Respiratory: Reports cough that is Airway is patent Respiratory effort is even, unlabored. 13:03 Pain: Denies pain. 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 - Social history:: Smoking status: Reported history of juuling and/or vaping. Screenin:57 [facility] ED Fall Risk Assessment (Adult) History of falling in the last 3 months, vg1 including since admission. Abuse screen: Denies threats or abuse. Denies injuries from another. Nutritional screening: No deficits noted. Tuberculosis screening: No symptoms or risk factors identified. Vital Signs: 12:54 BP 122 / 75; Pulse 64; Resp 16; Temp 98.5(O); Pulse Ox 100% on R/A; Weight 54.43 kg; vg1 Height 5 ft. 1 in. ; 12:54 Body Mass Index 22.67 (54.43 kg, 154.94 cm) vg1 ED Course: 12:20 Patient arrived in ED. am2 12:20 Jayla Jo FNP-C is [facility]. kb 12:20 Orlin Smith MD is Attending Physician. kb 12:56 Triage completed. vg1 12:56 Arm band placed on. vg1 12:57 Patient has correct armband on for positive identification. vg1 12:57 No provider procedures requiring assistance completed. Patient did not have IV access vg1 during this emergency room visit. Administered Medications: 13:02 Drug: predniSONE PO 40 mg Route: PO; vg1 13:03 Follow up: Response: Medication administered at discharge. vg1 Medication: 13:03 VIS not applicable for this client. vg1 Outcome: 12:35 Discharge ordered by . kb 13:03 Discharged to home ambulatory. vg1 13:03 Condition: good 13:03 Discharge instructions given to patient, Instructed on discharge instructions, follow up and referral plans. medication usage, Demonstrated understanding of instructions, follow-up care, medications, Prescriptions given X 1. 13:03 Patient left the ED. vg1 Signatures: Jayla Jo FNP-C FNP-Ckb Moreno, Amanda am2 Gemma Narvaez, RN RN vg1
[2022-11-25] MEDS ORDERED: predniSONE 20 MG TAB ONE (13:06)
[2022-11-25 13:11] VITALS: BP 122/75; TEMP 98.5; O2SAT 100
== END 2022-11-25 13:03 | disposition home or self-care (01) ==
LOC: ER 12:05
DX: J01.80 Other acute sinusitis (principal); H66.92 Otitis media, unspecified, left ear
CPT/HCPCS: 99283; J7512

== ENCOUNTER 2024-01-13 18:50 | Emergency (ER) | payer SELFPAY ==
--- OUTSIDE RECORDS SUMMARY | 2024-01-13 18:53 | XMS REPORT | Continuity of Care Document ---
Author Name Unknown Address [address] [place] [address] [facility] Address [address] [place] [address] Care Team Providers Care Radiochemical Technician Name Role Phone Pcp, Patient Does Not Have A Primary Care Physic kris Doctor Unassigned, [place] Attending Clinician RAMÓN Braun Attending Clinician Unavailable Only, Pcp Test Attending Clinician Unavailable Alfie Lopez MD Attending Clinician Payers Payer Name Policy Type Policy Number Effective Date Expirati on Date Source [facility] [id number] 00:00:00 Problems Condition Name Condition Details Condition Category Status Onset Date Resolution Date Last Treatment Date Treating Clinician Comments Source 38 weeks gestation of 38 weeks gestation of Disease Active 2018-07 00:00: 00 [facility] 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 Disease Active 2018-07 00:00: 00 [facility] with inconclusi ve viability, fetus 1 with inconclusi ve viability, fetus 1 Disease Active 10-29 00:00: 00 [facility] Tobacco use disorder Tobacco use disorder Disease Active 10-29 00:00: 00 [facility] Allergies, Adverse Reactions, Alerts Allergy Name Allergy Type Status Severity Reaction(s) Onset Date Inactive Date Treating Clinician Comments Source Butorpha nol Tartrate Propensi ty to adverse reaction s Active Itching 10-29 00:00: 00 [facility] BUTORPHA NOL TARTRATE DRUG INGREDI Active Hallucinates 10-29 00:00: 00 [facility] Acetamin ophen-Pa mabrom Propensi ty to adverse reaction s Active Hives 10-29 00:00: 00 [facility] ACETAMIN OPHEN-PA MABROM DRUG Active Hives 10-29 00:00: 00 [facility] Social History Social Habit Start Date Stop Date Quantity Comments Source History of tobacco use [facility]igarette Smoker [facility] intake 2019-06-21 00:00:00 2019-06-21 00:00:00 0 /d [facility] History of Social function 2019-04-18 00:00:00 2019-04-18 00:00:00 [facility] Tobacco use and exposure 2015-11-29 00:00:00 2015-11-29 00:00:00 Smokeless tobacco non-user [facility] Tobacco Comment 2015-11-29 00:00:00 2015-11-29 00:00:00 5 cigs a day [facility] Sex Assigned At 1995 00:00:00 1995 00:00:00 [facility] Smoking Status Start Date Stop Date Source Smokes tobacco daily 2015-11-29 00:00:00 [facility] Medications Ordered Medication Name Filled Medication Name Start Date Stop Date Current Medication? Ordering Clinician Indication Dosage Frequency Signature (SIG) Comments Components Source azithromyci n 250 mg tablet 2018-07 00:00: 00 Yes [id number] 250mg Take 1 tablet by mouth SEE-INSTRU CTIONS. Take 500 mg day 1, then 250 mg days 2 to 5. [facility] acetaminoph en 325 mg tablet 2018-07 00:00: 00 Yes [id number] 650mg Take 2 tablets by mouth every 6 (six) hours as needed for Pain (scale 1-3) or Pain (scale 4-6). [facility] vitamin w/FA tablet 2018-07 00:00: 00 Yes [id number] 1{tbl} Take 1 tablet by mouth daily. [facility] ibuprofen 600 mg tablet 2018-07 0 00:00: 00 Yes [id number] 600mg Take 1 tablet by mouth every 6 (six) hours as needed for Pain (scale 1-3) or Pain (scale 4-6) (Pain). Take with food or milk. [facility] vitamin w/FA tablet 2018-07 00:00: 00 Yes [id number] 1{tbl} Take 1 tablet by mouth daily. [facility] Procedures Procedure Date / Time Performed Performing Clinicia n Source EXTERNAL PROVIDER RECORDS 2020-07-31 06:01:00 Doctor Unassigned, [place] [facility] Encounters Start Date/Time End Date/Time Encounter Type Admission Type Attending [facility] Facility Care Department Encounter ID Source 2023-09-17 14:39:48 2023-09-17 14:39:48 Outpatient [place] [id number] Manuel Tae [place] 2023-07-30 11:02:17 2023-07-30 11:02:17 Outpatient [facility] [id number] Manuel Strong [place] 2023-06-11 08:04:28 2023-06-11 08:04:28 Outpatient [facility] [id number] Manuel Strong [place] 2023-06-04 11:16:39 2023-06-04 11:16:39 Outpatient [place] [id number] Manuel Strong [place] 2020-07-31 00:00:00 2020-07-31 00:00:00 Orders Only Doctor Unassigned, [place] [id number] 350.1.13.10 4.2.7.2.686 [id number] [facility] 2020-07-31 00:00:00 2020-07-31 00:00:00 Orders Only Doctor Unassigned, [place] [id number] 350.1.13.10 4.2.7.2.686 [id number] 2020-02-17 08:30:00 2020-02-17 08:30:00 Outpatient RAMÓN CID [facility] [id number] [facility] 2020-02-15 00:00:00 2020-02-15 00:00:00 Patient Secure Msg Doctor Unassigned, [place] [facility] 1.2.840.114 350.1.13.10 [id number] [id number] [facility] 2020-02-13 15:09:33 2020-02-13 15:24:33 Laboratory Only Only, Pcp Test Alfie Lopez [facility] 1.2.840.114 350.1.13.10 4.2.7.2.686 [id number] [facility] 2020-02-13 15:09:33 2020-02-13 15:24:33 Laboratory Only Only, Pcp Test [facility] [id number] 350.1.13.10 4.2.7.2.686 [id number] 2020-02-13 15:00:00 2020-02-13 15:00:00 Outpatient R [facility] [id number] [facility] Results Test Description Test Time Test Comments Results Result Co mments Source CBC W/AUTO DIFF WITH [id number] 04:29:59* Test Item Value Reference Range Interpretation Comme nts WBC (test code = 1001) 8.3 K/UL 3.5-11.0 RBC (test code = 1002) 4.11 M/UL 3.80-5.40 HEMOGLOBIN (test code = 1003) 13.0 G/DL 11.5-15.5 HEMATOCRIT (test code = 1004) 38.5 % 34.0-45.0 MCV (test code = 1005) 93.7 fL 80.0-99.0 MCH (test code = 1006) 31.6 PG 25.0-33.0 MCHC (test code = 1007) 33.8 G/DL 31.0-36.0 RDW (test code = 1038) 12.5 % 11.5-15.0 NEUTROPHILS (test code = 1008) 52.9 % LYMPHOCYTES (test code = 1010) 34.1 % MONOCYTES (test code = 1011) 10.3 % EOSINOPHILS (test code = 1012) 2.1 % BASOPHILS (test code = 1013) 0.5 % IMMATURE GRANULOCYTES (test code = 1036) 0.1 % NUCLEATED RBCS (test code = 1065) 0.0 /100 WBC'S See_Comment [Automated messa ge] The system which generated this result transmitted reference range: 0.0. The reference range was not used to interpret this result as normal/abnormal. PLATELET COUNT (test code = 1015) 268 K/UL 130-400 ABSOLUTE NEUTROPHILS (test code = 1066) 4.38 K/UL 1.50-7.50 ABSOLUTE LYMPHOCYTES (test code = 1067) 2.82 K/UL 1.00-4.00 ABSOLUTE MONOCYTES (test code = 1068) 0.85 K/UL 0.20-1.00 ABSOLUTE EOSINOPHILS (test code = 1040) 0.17 K/UL 0.00-0.50 ABSOLUTE BASOPHILS (test code = 1069) 0.04 K/UL 0.00-0.20 ABS IMMATURE GRANULOCYTES (test code = 1020) 0.01 K/UL 0.00-0.10 ABS NUCLEATED RBCS (test code = 25442) 0.00 K/UL 0.00-0.11
--- NOTE | 2024-01-13 19:02 | EDPHYS ---
Physician Documentation [facility] Name: Pura Pulido Age: 28 yrs Sex: Female : 1995 Arrival Date: 01/13/2024 Time: 18:50 Bed 11 Private MD: ED Physician Diana Beavers HPI: 01/12 19:00 This 28 yrs old Female presents to ER via Ambulatory with complaints of Cat Bite. kb 19:00 Pt is a 28 year old female who was bitten on right forearm last night by her sister's kb cat. States she has had pain and swelling. Also reports she needs a tetanus. Historical: - Allergies: 18:59 No Known Allergies; ld1 - PMHx: 18:59 scoliosis; ld1 - PSHx: 18:59 section; ld1 - Immunization history:: Adult Immunizations up to date, Last tetanus immunization: not immunized. - Infectious Disease History:: Denies. - Social history:: Smoking status: Patient denies any tobacco usage or history of. ROS: 18:58 Constitutional: As per HPI kb Exam: 18:58 Constitutional: This is a well developed, well nourished patient who is awake, alert, kb and in no acute distress. Head/Face: Normocephalic, atraumatic. ENT: Moist Mucous membranes Cardiovascular: Regular rate Respiratory: Respirations even and unlabored. No increased work of breathing. Talking in full sentences Abdomen/GI: Soft, non-tender. No distention MS/ Extremity: Pulses equal, no cyanosis. Neurovascular intact. Full, normal range of motion. Neuro: Awake and alert, GCS 15, oriented to person, place, time, and situation. Moves all extremities. Normal gait. 18:58 Skin: 2 puncture wounds to right forearm with slight erythema and swelling. Vital Signs: 18:58 BP 138 / 87; Pulse 79; Resp 18; Temp 98.2(O); Pulse Ox 100% on R/A; Weight 58.97 kg; ld1 Height 5 ft. 2 in. ; Pain 3/10; 19:37 BP 139 / 87; Pulse 66; Resp 16; Pulse Ox 99% on R/A; ld1 18:58 Body Mass Index 23.78 (58.97 kg, 157.48 cm) ld1 18:58 Pain Scale: Adult ld1 MDM: 18:54 Patient medically screened. kb 18:58 Differential diagnosis: superficial laceration, cellulitis. Data reviewed: vital signs, kb nurses notes. Counseling: I had a detailed discussion with the patient and/or guardian regarding the historical points, exam findings, and any diagnostic results supporting the discharge/admit diagnosis, the need for outpatient follow up, a family practitioner, to return to the emergency department if symptoms worsen or persist or if there are any questions or concerns that arise at home. Administered Medications: 19:21 Drug: Amoxicillin-Clavulanate PO 875 mg PO once Route: PO; ha1 19:39 Follow up: Response: No adverse reaction ld1 19:22 Not Given (not in inventory ): boostrix tdap0.5 ml IM once; as a single dose ha1 Disposition Summary: 01/13/24 19:01 Discharge Ordered Notes: Location: Home kb Condition: Stable kb Diagnosis - Bitten by cat kb Followup: kb - With: Emergency Department - When: As needed - Reason: Worsening of condition Followup: kb - With: Private Physician - When: 2 - 3 days - Reason: Recheck today's complaints, Continuance of care, Re-evaluation by your physician Discharge Instructions: - Discharge Summary Sheet kb - Animal Bite, Adult, [id number] kb Forms: - Medication Reconciliation Form kb - Antibiotic Education kb - Prescription Opioid Use kb - Patient Portal Instructions kb - Leadership Thank You Letter kb Prescriptions: - Augmentin 875-125 mg Oral Tablet - take 1 tablet ORAL route every 12 hours for 10 days; 20 tablet; Refills: 0, kb Product Selection Permitted Signatures: Jayla Jo FNP-C FNP-Ckb Sims, Lauren RN RN ld1 Karina Martinez, RN RN ha1
--- NOTE | 2024-01-13 19:02 | ER ---
Nurse's Notes [facility] Name: Pura Pulido Age: 28 yrs Sex: Female : 1995 Arrival Date: 01/13/2024 Time: 18:50 Bed 11 Private MD: Diagnosis: Bitten by cat Presentation: 01/12 18:58 Chief complaint: Patient states: Cat bite to right forearm last night - sisters cat, ld1 unknown vaccine status. Coronavirus screen: At this time, the client does not indicate any symptoms associated with coronavirus-19. Ebola Screen: No symptoms or risks identified at this time. Initial Sepsis Screen: Does the patient meet any 2 criteria? No. Patient's initial sepsis screen is negative. Does the patient have a suspected source of infection? No. Patient's initial sepsis screen is negative. Risk Assessment: Do you want to hurt yourself or someone else? Patient reports no desire to harm self or others. Onset of symptoms was January 13, 2024. 18:58 Method Of Arrival: Ambulatory ld1 18:58 Acuity: UMESH 4 ld1 Triage Assessment: 18:59 Bite description: bite sustained to right arm by a cat, animal information: ld1 vaccination(s) is unknown. General: Appears in no apparent distress. comfortable, Behavior is calm, cooperative, appropriate for age. Pain: Complains of pain in right arm Pain does not radiate. Pain currently is 3 out of 10 on a pain scale. Quality of pain is described as throbbing, Pain began suddenly, Is continuous. EENT: No signs and/or symptoms were reported regarding the EENT system. Neuro: Level of Consciousness is awake, alert, obeys commands, Oriented to person, place, time, situation. Cardiovascular: Capillary refill < 3 seconds Patient's skin is warm and dry. Respiratory: Airway is patent Respiratory effort is even, unlabored. GI: Abdomen is flat, non-distended. : No signs and/or symptoms were reported regarding the genitourinary system. Derm: No signs and/or symptoms reported regarding the dermatologic system. Musculoskeletal: No signs and/or symptoms reported regarding the musculoskeletal system. Historical: - Allergies: 18:59 No Known Allergies; ld1 - PMHx: 18:59 scoliosis; ld1 - PSHx: 18:59 section; ld1 - Immunization history:: Adult Immunizations up to date, Last tetanus immunization: not immunized. - Infectious Disease History:: Denies. - Social history:: Smoking status: Patient denies any tobacco usage or history of. Screenin:00 [facility] ED Fall Risk Assessment (Adult) History of falling in the last 3 months, ld1 including since admission No falls in past 3 months (0 pts) Confusion or Disorientation No (0 pts) Intoxicated or Sedated No (0 pts) Impaired Gait No (0 pts) Mobility Assist Device Used No (0 pt) Altered Elimination No (0 pt) Score/Fall Risk Level 0 - 2 = Low Risk Oriented to surroundings, Maintained a safe environment, Hourly rounding (assess needs \T\ fall precautionary measures) done. 19:00 Abuse screen: Denies threats or abuse. Denies injuries from another. Nutritional ld1 screening: No deficits noted. Tuberculosis screening: No symptoms or risk factors identified. Assessment: 19:00 General: Appears in no apparent distress. comfortable, Behavior is calm, cooperative, ld1 appropriate for age. 19:00 Neuro: Level of Consciousness is awake, alert, obeys commands, Oriented to person, ld1 place, time, situation. Cardiovascular: Patient's skin is warm and dry. Derm: Skin Bite maxwell noted to right forearm. Non active bleeding noted. Skin is pink, warm \T\ dry. Redness noted to right forearm. 19:23 Reassessment: Call placed to [facility] to report cat bite, officer to come to see patient at [facility] this facility. Unable to provide case number until they come see patient. Discharge on hold. 19:36 Reassessment: officer out the door, ok to discharge at this time. [facility] 19:37 Reassessment: Patient appears in no apparent distress at this time. Patient is alert, ld1 oriented x 3, equal unlabored respirations, skin warm/dry/pink. Vital Signs: 18:58 BP 138 / 87; Pulse 79; Resp 18; Temp 98.2(O); Pulse Ox 100% on R/A; Weight 58.97 kg; ld1 Height 5 ft. 2 in. ; Pain 3/10; 19:37 BP 139 / 87; Pulse 66; Resp 16; Pulse Ox 99% on R/A; ld1 18:58 Body Mass Index 23.78 (58.97 kg, 157.48 cm) ld1 18:58 Pain Scale: Adult ld1 ED Course: 18:53 Patient arrived in ED. ra3 18:54 Jayla Jo FNP-C is [facility]. kb 18:54 Diana Beavers MD is Attending Physician. kb 18:59 Triage completed. ld1 18:59 Arm band placed on right wrist. ld1 19:00 Patient has correct armband on for positive identification. Placed in gown. Bed in low ld1 position. Provided Education on: call light, fall precautions. 19:05 Milagros Mathis, RN is Primary Nurse. ld1 19:38 No provider procedures requiring assistance completed. Patient did not have IV access ld1 during this emergency room visit. Administered Medications: 19:21 Drug: Amoxicillin-Clavulanate PO 875 mg PO once Route: PO; ha1 19:39 Follow up: Response: No adverse reaction ld1 19:22 Not Given (not in inventory ): boostrix tdap0.5 ml IM once; as a single dose ha1 Medication: 19:38 VIS not applicable for this client. ld1 Outcome: 19:01 Discharge ordered by MD. kb 19:38 Discharged to home ambulatory, ld1 19:38 Condition: stable 19:38 Discharge instructions given to patient, Instructed on discharge instructions, follow up and referral plans. medication usage, Demonstrated understanding of instructions, follow-up care, medications, Prescriptions given X 1, 19:38 Patient left the ED. ld1 Signatures: Jayla Jo FNP-C BELLY DANCER-Ckb Milagros Mathis, RN RN ld1 Karina Martinez RN RN 1 Love Freire RN RN nv1 Patti Salguero ra3
[2024-01-13] MEDS ORDERED: AMOX/K CLAV 875 MG TAB ONE (19:16)
[2024-01-13 19:56] VITALS: BP 139/87; TEMP 98.2; O2SAT 99
== END 2024-01-13 19:38 | disposition home or self-care (01) ==
LOC: ER 18:50
DX: S51.831A Puncture wound without foreign body of right forearm, initial encounter (principal); W55.01XA Bitten by cat, initial encounter